=== PATIENT | male | born 1955 | race Caucasian/White ===

== ENCOUNTER 2016-08-14 18:54 | Observation (INO) ==
[2016-08-14] MEDS ORDERED: *HR* Adenosine 6 MG/2 ML SYRINGE IVP ONE ×2 (19:13→19:23)
[2016-08-14] MEDS ORDERED: 0.9 % Sodium Chloride 1,000 ML ONE ×2 (19:14→23:00)
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
[2016-08-14 19:58] LABS: Basophils % 0.3 %; Eosinophils % 0.1 %; Hematocrit 40.1 % (37.5-50.1); Hemoglobin 12.2 g/dL (12.9-16.9); Immature Granulocytes % 0.4 % (0-4); Lymphocytes # 2.9 K/mcL (0.6-4.6); Lymphocytes % 20.1 %; Mean Corpuscular HGB Conc 30.4 g/dL (31.6-35.5); Mean Corpuscular Hemoglobin 25.5 pg (28.0-33.3); Mean Corpuscular Volume 83.9 fL (83.0-100.0); Monocytes # 1.1 K/mcL (0.0-1.3); Monocytes % 7.6 %; Neutrophils # 10.2 K/mcL (1.6-8.9); Platelet Count 284 K/mcL (140-400); Red Blood Count 4.78 M/mcL (4.19-5.50); Red Cell Distribution Width 14.2 % (11.5-14.5); Segmented Neutrophils % 71.5 %
[2016-08-14 20:03] LABS: INR 1.1
[2016-08-14 20:05] LABS: Activated Partial Thrombo Time 26.7 Seconds (26.0-36.0)
[2016-08-14 20:07] LABS: BUN/Creatinine Ratio 14 (6-26); Blood Urea Nitrogen 11 mg/dL (8-26); Calcium 10.2 mg/dL (8.6-10.8); Carbon Dioxide 26 mEq/L (19-29); Chloride 99 mEq/L (98-109); Glucose 149 mg/dL (70-99); Osmolality,Calculated 286 (280-300); Potassium 4.2 mEq/L (3.5-4.5); Sodium 137 mEq/L (136-145); eGFR For African Americans > 60 (> 60); eGFR For Non-African Americans > 60 (> 60)
[2016-08-14] MEDS ORDERED: *HR* OxyCODONE Immed Rel 5 MG TABLET PO PRN (22:41)
[2016-08-14] MEDS ORDERED: diazePAM 5 MG TABLET PO PRN (22:41)
[2016-08-14] MEDS ORDERED: Naloxone 0.4 MG/ML INJ IVP PRN (22:52)
[2016-08-14] MEDS ORDERED: *HR* Morphine 2 MG/ML SYRINGE IVP PRN (22:52)
[2016-08-14] MEDS ORDERED: Ondansetron 4 MG/2 ML VIAL IVP PRN (22:52)
[2016-08-14] MEDS ORDERED: Acetaminophen 325 MG TABLET PO PRN (22:52)
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
[2016-08-14 23:09] LABS: Magnesium 1.9 mg/dL (1.6-2.6)
[2016-08-14] MEDS ORDERED: D5% in Water 1,000 ML IV PRN (23:38)
[2016-08-14] MEDS ORDERED: *HR* Dextrose 50 % in Water (Syg) 50 ML SYRINGE IVP PRN (23:38)
[2016-08-14] MEDS ORDERED: Dextrose Gel 15 GM PO PRN ×2 (23:38)
[2016-08-15] MEDS: Insulin LISPRO 300 UNITS/3 ML VIAL SQ SCH ×4 (01:31→18:01)
[2016-08-15] MEDS ORDERED: *HR* Morphine Sulfate SR (12 HR) 100 MG TABLET.ER PO SCH ×2 (06:00)
[2016-08-15] MEDS ORDERED: Regadenoson 0.4 MG/5 ML SYRINGE IVP ONE (06:50)
[2016-08-15] MEDS ORDERED: *HR* OxyCODONE Immed Rel 5 MG TABLET PO PRN (10:51)
[2016-08-15 11:23] LABS: BUN/Creatinine Ratio 16 (6-26); Blood Urea Nitrogen 10 mg/dL (8-26); Calcium 9.3 mg/dL (8.6-10.8); Carbon Dioxide 29 mEq/L (19-29); Chloride 103 mEq/L (98-109); Glucose 104 mg/dL (70-99); Osmolality,Calculated 289 (280-300); Potassium 4.3 mEq/L (3.5-4.5); Sodium 140 mEq/L (136-145); eGFR For African Americans > 60 (> 60); eGFR For Non-African Americans > 60 (> 60)
[2016-08-15] MEDS: Baclofen 10 MG TABLET PO SCH ×3 (11:32→18:05)
[2016-08-15] MEDS: Lisinopril 20 MG TABLET PO SCH (11:32)
--- NOTE | 2016-08-15 11:57 | Nuclear Medicine Stress Report ---
Regadenoson Nuclear Stress Name: Clint Castillo Date of Study: 08/15/2016 Date: 1955 Ht: 69.0 in Medical Record#: [id number] Age: 61 Wt: 200.0 lb Gender: Male Order #: [id number] Location: [facility] Room: [facility] [place] Supervising Provider: Joon Tierney CNP Reading Physician: Jessie Castro DO Ordering Physician: Betito Stephens DO Stress Technologist: Kiley Gonzalez, ALUMINUM POURER, CCT, CPFT Former Hand: Shannon Olson Impression: There is a small to medium sized, moderate-severe intensity stress perfusion defect involving the basal and mid inferior wall consistent with reversible ischemia. No appreciable change in pharmacologic ECG. No arrhythmias noted with stress. No complaints of chest pain. Gated EF = 65%. Findings communicated to ordering provider. History: Hypertension Diabetes Hypercholesteremia Stress Test Summary: Stress Test Type: Pharmacologic Regadenoson 0.4mg/5ml given IV Baseline Information: Initial Heart Rate: 61 Blood Pressure: 122/62 Stress Information: Test Terminated Due to (primary): Completed Protocol Maximum Blood Pressure: 130/62 Maximum Heart Rate: 79 Percent Maximum Heart Rate Achieved: 49 Double Product: 77377 METS Reached: 1 Symptoms: No chest symptoms Nuclear Summary: SPECT myocardial perfusion imaging using [id number] Sestamibi given intravenously was performed at rest and following cardiac stress testing. The resting images were obtained following initial dose of 10.6 mCi. Following stress an additional dose of 31.9 mCi was given at peak exercise or 30 seconds post regadenoson infusion. Medication Given: Time Medication Dose Units Route Findings: Stress Note * Resting ECG demonstrated normal sinus rhythm with nonspecific ST abnormalities. * Pharmacologic stress ECG is negative for ischemia at level of heart rate achieved. No appreciable change in resting ECG. * No arrhythmias were noted during stress. * Patient had no chest pain during stress. Hemodynamic responses * Normal hemodynamic responses to pharmacologic stress. Study Quality * Study quality is good. Gated EF % * Gated EF = 65%. Left Ventricle * The left ventricle is not dilated. TID * No evidence of transient ischemic dilatation. Lung Uptake * There is no evidence of increase lung uptake. NORMALS * Normal wall motion. PERFUSION * There is a small to medium sized, moderate-severe intensity stress perfusion defect involving the basal and mid inferior wall. * Other segments demonstrate normal rest and stress perfusion. Updated by Jessie Castro on 08/15/2016 11:49:27 AM electronically signed on 08/15/2016 11:53:16 AM with status of Final
[2016-08-15 12:07] LABS: Basophils % 0.3 %; Eosinophils # 0.1 K/mcL (0.0-0.6); Eosinophils % 0.6 %; Hematocrit 34.1 % (37.5-50.1); Hemoglobin 10.5 g/dL (12.9-16.9); Immature Granulocytes % 0.4 % (0-4); Immature Platelets 3.4 % (1.1-6.1); Lymphocytes # 1.7 K/mcL (0.6-4.6); Lymphocytes % 18.2 %; Mean Corpuscular HGB Conc 30.8 g/dL (31.6-35.5); Mean Corpuscular Hemoglobin 25.8 pg (28.0-33.3); Mean Corpuscular Volume 83.8 fL (83.0-100.0); Mean Platelet Volume 9.6 fL (9.4-12.4); Monocytes # 0.8 K/mcL (0.0-1.3); Monocytes % 8.3 %; Neutrophils # 6.9 K/mcL (1.6-8.9); Platelet Count 210 K/mcL (140-400); Red Blood Count 4.07 M/mcL (4.19-5.50); Red Cell Distribution Width 14.1 % (11.5-14.5); Segmented Neutrophils % 72.2 %
--- NOTE | 2016-08-15 12:07 | ECHO - Doppler Report ---
Echocardiogram Name: Clint Castillo Date of Study: 08/15/2016 Date: 1955 Ht: 69.0 in Medical Record#: [id number] Age: 61 Wt: 200.0 lb Gender: Male BSA: 2.07 Order #: [id number] Location: [facility] Room #: [id number] Reading Physician: Jessie Castro DO Punch Press Operator: Elliot Santos RN Ordering Physician: Phillip Borja MD Primary Physician: Aurelia Sanchez MD Indications: Arrhythmia Impressions: LVEF 65%. Normal left ventricular size and systolic function. Normal diastolic function of the left ventricle. Normal right ventricular size and function. No significant valvular dysfunction. No pulmonary hypertension. Left Ventricular Wall Motion: Rest Echo Findings All wall segments showed normal motion. Findings: Study Quality * Technically adequate exam. ECG Findings * Normal sinus rhythm. Left Ventricle * LVEF 65%. * Normal LV chamber size, wall thickness and function. * Normal left ventricular diastolic function. Left Atrium * Normal left atrial size. Aortic Valve * No aortic regurgitation. * Trileaflet aortic valve. * Normal aortic valve structure. * No aortic stenosis. Mitral Valve * No mitral regurgitation. * Normal mitral valve structure. * No mitral stenosis. Tricuspid Valve * Normal tricuspid valve structure. * Trace tricuspid regurgitation. * Estimated RA pressure is 3 mmHg. * Estimated RVSP is 32 mmHg. * No pulmonary hypertension. Pulmonic Valve * Pulmonic valve is not well visualized. * No pulmonic stenosis. * No pulmonic regurgitation. Pulmonary Artery * Pulmonary artery not well visualized. Right Ventricle * Normal right ventricular structure and function. Right Atrium * Normal right atrial size. Interatrial Septum * No evidence of PFO by color Doppler. IVC * The IVC is not dilated. Pericardium * There is no pericardial effusion present. Aorta * Normally sized aortic root. History Hypertension Diabetes Hypercholesteremia 10/27/2014 a Previous Echo was performed. Measurements: BP: 120/ 68 2D Normal Values IVSd: 1.30 cm 0.6 - 1.0 cm LVIDd: 5.30 cm 3.7 - 5.6 cm LVPWd: 1.10 cm 0.6 - 1.1 cm LVIDs: 3.50 cm 1.5 - 3.6 cm %FS: 34.00 cm >25 % LVOT Diam: 2.00 cm LA volume: Mitral Valve Peak E:1.03 m/sec Peak A:.85 m/sec E/A Ratio:1.2 Peak E' Lat Chris:12.6 cm/s Peak E' Med Chris:12.5 cm/s E/E' Lat Ratio:8.2 E/E' Med Ratio:8.2 Tricuspid Valve TV Regurg Peak Grad: 29.00mmHg TV Regurg Peak Chris: 2.67m/sec Updated by Jessie Castro on 08/15/2016 12:03:24 PM electronically signed on 08/15/2016 12:03:48 PM with status of Final [employer] [place]: 1=Normal, 2=Hypokinesis, 3=Akinesis, 4=Dyskinesis, 5=Aneurysmal, 6=Hyperkinetic, X=Not Visualized (Blank)=Missing
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
[2016-08-15] MEDS ORDERED: *HR* Heparin 10,000 UNIT/10 ML VIAL ONE (15:17)
[2016-08-15] MEDS ORDERED: Nitroglycerin 1,000 MCG/10 ML VIAL IV ONE (15:17)
[2016-08-15] MEDS ORDERED: 0.9 % Sodium Chloride 1,000 ML ONE (15:17)
[2016-08-15] MEDS ORDERED: Heparin 1,000 UNITS/500 mL NS 500 ML ONE (15:17)
[2016-08-15] MEDS: Metoprolol XL (24 HR) Succ 25 MG TAB.ER.24H PO SCH (15:39)
[2016-08-15] MEDS: Aspirin 81 MG TAB.CHEW PO SCH (15:39)
--- NOTE | 2016-08-15 15:41 | Pre-Sedation Evaluation ---
Pre-sedation evaluation - Pre-sedation checklist Date of procedure: 08/15/16 Procedure: 1530 Recent Vitals: Last Vital Signs Temp 97.6 F 08/15/16 07:20 Pulse 61 08/15/16 11:00 Resp 17 08/15/16 11:00 BP 120/88 08/15/16 11:00 Pulse Ox 95 08/15/16 13:15 H&P (including ROS) documented in medical record: Yes Previous reaction to sedatives/anesthetics: No Dietary Status: NPO after Midnight Airway Assessment: Patient can open mouth completely, TMJ function normal Dentition: No loose teeth or bridges Possible difficult airway: No ASA Classification *see protocol: CLASS II-Mild systemic disease Plan of Care: Pt appropriate candidate for procedure/moderate/conscious sedation , Risks/benefits of procedure/sedation discussed w/ patient/family, If not NPO; Risk of intake outweiged by necessity to perform procedure
[2016-08-15] MEDS ORDERED: *HR* FentaNYL (PF) 100 MCG/2 ML VIAL ONE (15:54)
[2016-08-15] MEDS ORDERED: *HR* Midazolam HCl 2 MG/2 ML VIAL ONE (15:54)
--- NOTE | 2016-08-15 16:26 | Event Note ---
Date of Encounter: 08/15/16 Time of Encounter: 16:20 - Cardiology Event Note LHC: non-obstructive CAD. No further inpatient Cardiology recommendations, continue medical management. Concern for atypical atrial flutter on ECG, CHA2Ds Vasc=1. Continue asa for now and betablocker for rate control. Follow-up with Dr. Roge Baker in the outpatient setting in 3-4 weeks. Cardiology will sign-off, please call with questions.
--- NOTE | 2016-08-15 16:39 | Invasive Diagnostic Lab Proc ---
Name: Clint Castillo Date of Study: 08/15/2016 Date: 1955 Ht: 68.9in Medical Record#: [id number] Age: 61 Wt: 202.83lb Gender: Male BSA: 2.08 Order #: [id number] BMI: 30.04 Physicians Procedure Physician: Juanito Colindres MD Referring MD: Referring MD: Staff Name Position Time In Mallika Burrows RN Monitor 03:56 PM Gisela Blood RN Industrial Tech Instructor 03:56 PM [facility], Bev RT (R) 03:56 PM Kaylee Bradley RT (R) Scrub 03:56 PM Indications Indication Abnormal Test - Stress Procedures Performed Procedure L HRT ARTERY/VENTRICLE ANGIO Pre-Procedure Checklist Informed consent is complete signed and on chart. H\\T\\P is on chart. ID band is on and ID verified with patient. Patient NPO for procedure The procedure was described for the patient and questions were answered. Blood Pressure: 165/87 ECG is on chart. Rhythm: Sinus Bradycardia Plan of Care Patient will tolerate the procedure without complications. Adequate level of comfort will be maintained. Hemodynamics will remain stable Patient will recover from procedure without complications. Respiratory function will be maintained. Cardiac rhythm will remain stable. Patient temperature will be maintained. Patient and/or family have verbalized understanding of the procedure. Patient Education Chief Complaint/Reason for Test: Cardiac Cath Developmental Category: Adult (18-64 years) Developmentally Appropriate for Age: Yes Learning Barriers: None Education Needs: Procedure Education Method: Verbal Information Taught: Cardiac Cath Educational Evaluation: Able to repeat information Intravenous Access Time IV Size Location DC'd Fluid/Drip Rate Units RN 04:02 PM Started with 22g 1 " Rt Arm 0.9NaCl 25 ml/hr Gisela Blood RN Allergies No Known Allergies Vital Signs Time BP (mmHg) HR (bpm) O2 Sat. RR (bpm) LOC 03:58 PM 165 / 87 51 98 % 24 5 = Fully awake and oriented or at pre-proc level 03:58 PM / % 5 = Fully awake and oriented or at pre-proc level 03:57 PM 165 / 87 51 98 % 24 04:02 PM 160 / 80 54 96 % 13 04:07 PM 157 / 89 62 97 % 19 04:12 PM 148 / 83 53 97 % 14 04:17 PM 163 / 82 49 97 % 18 04:21 PM 153 / 92 48 95 % 18 04:26 PM 158 / 90 48 95 % 13 04:13 PM / % 5 = Fully awake and oriented or at pre-proc level Procedural Medications Time Medication Dose Units Method Given By 03:57 PM Oxygen 2 L/min nasal cannula Gisela Blood RN 03:57 PM Versed 1 mg Intravenous Gisela Blood RN 03:58 PM Fentanyl 50 mcg Intravenous Gisela Blood RN 04:00 PM Lidocaine 2% 17 ml Subcutaneous Juanito Colindres MD ASA Classification: CLASS II- Mild systemic disease (i.e. well-controlled diabetes, hypertension, asthma, cigarette smoking) Suzan Score Preprocedure Postprocedure Activity 1- Moves 2 extremities sustained head lift Activity 2- Moves 4 extremities sustained head lift Circulation 2- SBP +/= 20 points of pre-anesthetic level Circulation 2- SBP +/= 20 points of pre-anesthetic level Consciousness 2- Awake and alert oriented x 3 Consciousness 2- Awake and alert oriented x 3 O2 Saturation 2- Able to maintain O2 satruation of 92% on room air O2 Saturation 2- Able to maintain O2 satruation of 92% on room air Respiratory 2- Able to deep breathe and cough well Respiratory 2- Able to deep breathe and cough well Total Score 9 Total Score 10 Contrast Agent: Isovue Diagnostic Contrast: 72 ml Total Contrast: 72 ml Fluoro Dose: 346 mGy Procedure Log Time Note Enter By 03:22 PM CathStat 03:55 PM Pt arrived to medical lab specialist 2 at 15:55 tsites 03:55 PM Physician arrived 15:55 tsites 03:55 PM Meet and greet completed tsites 03:55 PM Sign in performed according to hospital policy. tsites 03:55 PM Procedure start 15:55 tsites 03:55 PM Recorded ECG: HR=52 Condition=Condition 1 03:55 PM Vitals capture started with the following parameters, Patient=Adult, Interval=5 min, Initial Qaflfefe=495 mmHg, Deflation Rate=5 mmHg, Cuff placed on Right Arm 03:56 PM Mallika Burrows RN Position: Monitor Time in: 15:56 tsites 03:56 PM Gisela Blood RN Position: Industrial Tech Instructor Time in: 15:56 tsites 03:56 PM Bev Willett RT (R) Position: Time in: 15:56 tsites 03:57 PM HR=51 bpm, QNZV=389/87 mmhg, SpO2=98.0 %, Resp=24 B/min, Comment=Sinus Suman 03:57 PM Kaylee Bradley RT (R) Position: Scrub Time in: 15:56 tsites 03:57 PM Patient charges- Angio tray pack, Navilyst 3mm J, Pulse Oximetry and ACIST tubing and transducer tsites 03:57 PM Case Delayed No tsites 03:57 PM Hair removed from procedure site in procedure lab using clippers. Bilateral groin prepped with Chloraprep by Bev Willett RT (R) then patient draped. Skin intact. tsites 03:57 PM Time: 15:57 Oxygen on at 2 L/min per nasal cannula by Gisela Blood RN tsites 03:58 PM Time: 15:57 Versed 1 mg Intravenous Given by Gisela Blood RN tsites 03:58 PM Time: 15:58 Fentanyl 50 mcg Intravenous Given by Gisela Blood RN tsites 03:58 PM Time: 15:58 Patient comfortable and pain free: Yes tsites 03:58 PM Time: 15:58LOC: 5 = Fully awake and oriented or at pre-proc level tsites 03:58 PM Clinical Presentation: Stable angina tsites 03:58 PM Pressure channel 1 zero failed. 03:59 PM ASA Class CLASS II- Mild systemic disease (i.e. well-controlled diabetes, hypertension, asthma, cigarette smoking) tsites 03:59 PM Pressure channel 1 zeroed. 03:59 PM Time out performed according to hospital policy tsites 04:00 PM Time: 16:00 17 ml Lidocaine 2% to right groin Subcutaneous Given by Juanito Colindres MD tsites 04:01 PM Access obtained by percutaneous puncture. 5Fr 10cm Terumo [place] sheath placed in right Femoral artery. [id number] tsites 04:01 PM 5Fr FL 4 catheter inserted over the wire [facility] tsites 04:01 PM LCA angiography performed in multiple views. tsites 04:02 PM HR=54 bpm, PDMH=756/80 mmhg, SpO2=96.0 %, Resp=13 B/min, Comment=Sinus Suman 04:02 PM Recorded Pressure: Ao, HR=50, Condition=Condition 1 (Aorta) Ao 139/82/105 04:03 PM Catheter removed tsites 04:03 PM 5Fr FR 4 catheter inserted over the wire [facility] tsites 04:04 PM RCA angiography performed in multiple views. tsites 04:04 PM Recorded Pressure: Ao, HR=58, Condition=Condition 1 (Aorta) Ao 141/90/113 04:05 PM Catheter removed tsites 04:05 PM Coronary Dominance: right tsites 04:05 PM 5Fr Pigtail catheter inserted over the wire [facility] tsites 04:05 PM Catheter selectively placed in left ventricle tsites 04:06 PM Pressure channel 1 zero failed. 04:06 PM Pressure channel 1 zeroed. 04:06 PM Recorded Pressure: LV, HR=58, Condition=Condition 1 (Left Ventricle) LV 144/6/22 04:06 PM Bolus angiogram of left Ventricle complete: 12 ml/sec for a total of 36 mls tsites 04:07 PM Recorded Pressure: LV, Ao, HR=63, Condition=Condition 1 (Left Ventricle) LV 122/30/30, (Aorta) Ao 125/76/97 04:07 PM HR=62 bpm, EELD=161/89 mmhg, SpO2=97.0 %, Resp=19 B/min, Comment=Sinus Suman 04:07 PM Bolus angiogram of right Femoral complete: 2 ml/sec for a total of 4 mls tsites 04:07 PM Catheter removed tsites 04:07 PM Coronary Dominance: right tsites 04:07 PM Procedure completed at 16:07 tsites 04:08 PM Sign out completed: Radiation Dose 346.26 mGy Fluoro Time: 1.0 Isovue 370 - 200ml contrast 71.5 ml given by Juanito Colindres MD. Complications: NoneCardiac Rehab Consult needed: NoConfirmed administered medications: Yes tsites 04:08 PM Isovue 370 - 200ml,1 Bottle(s) used. tsites 04:12 PM HR=53 bpm, SPAZ=444/83 mmhg, SpO2=97.0 %, Resp=14 B/min, Comment=Sinus Suman 04:13 PM Arterial sheath pulled using manual compression and V+ Pad for 15 minutes by Gisela Blood RN tsites 04:13 PM Time: 15:58LOC: 5 = Fully awake and oriented or at pre-proc level tsites 04:13 PM Time: 15:58 Patient comfortable and pain free: tsites 04:13 PM Post ECG Sinus Bradycardia tsites 04:13 PM Post Blood Pressure 148/83 tsites 04:14 PM 16:14 Post Pulses Bilateral DP \\T\\ PT 1+ tsites 04:14 PM Information taught Cardiac Cath tsites 04:14 PM Education needs Procedure, Plan of Care, and Safe \\T\\ Effective Use of Medications tsites 04:14 PM Learning barriers :None tsites 04:14 PM Education Methods Verbal tsites 04:14 PM Education evaluation Able to repeat information tsites 04:17 PM HR=49 bpm, JRFM=459/82 mmhg, SpO2=97.0 %, Resp=18 B/min, Comment=Sinus Suman 04:18 PM Report given to Nithya GARCIA Pt taken to E Room #25. 16:18 tsites 04:21 PM HR=48 bpm, PRWI=757/92 mmhg, SpO2=95.0 %, Resp=18 B/min, Comment=Sinus Suman 04:26 PM HR=48 bpm, SUMR=673/90 mmhg, SpO2=95.0 %, Resp=13 B/min, Comment=Sinus Suman 04:27 PM Site status No bleeding/hematoma - Rt Groin as reported by Gisela Blood RN at 16:27 tsites 04:27 PM Opsite applied tsites 04:28 PM Plavix, Effient or Brilinta given No tsites 04:28 PM Delay to floor No tsites 04:28 PM Patient out of room: 16:28 tsites 04:28 PM Family placed in consult room. tsites 04:28 PM Complications: None tsites 04:28 PM Fluoro Time: 1 tsites 04:28 PM Isovue 370 - 200ml contrast 71.5 ml given by Juanito Colindres MD. tsites 04:28 PM Radiation Dose 346.26 mGy tsites 04:28 PM Time: 16:13LOC: 5 = Fully awake and oriented or at pre-proc level tsites 04:28 PM Time: 16:13 Patient comfortable and pain free: Yes tsites Complications Complication None None Hemodynamics Pressures Site Systolic/A Wave Diastolic/V Wave Mean AO 139 82 105 AO 141 90 113 LV 144 6 22 LV 122 30 30 AO 125 76 97 Post Procedure Information Blood Pressure: 148/83 mmHg Rhythm: Sinus Bradycardia Post procedural instructions were given Closure Device Time Device Success/Fail 08/15/2016 4:08:00 PM Manual Compression Successful Site Checks Time Location Status Staff Sheath In? Note 04:27 PM Rt Groin No bleeding/hematoma Gisela Blood RN Pulses Time Site Pre-Procedure Post-Procedure Note 4:14:00 PM Bilateral DP \\T\\ PT 1+ 08/15/2016 3:55:00 PM Bilateral DP \\T\\ PT 1+ Updated by Bev Tamie, RT (R) on 08/15/2016 4:31:49 PM [facility], RT electronically signed on 08/15/2016 4:32:25 PM with status of Final
--- NOTE | 2016-08-15 17:27 | Electrocardiograph Report ---
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
[2016-08-15] MEDS: 0.9 % Sodium Chloride 1,000 ML IVC SCH (18:00)
[2016-08-15] MEDS: *HR* Heparin 5,000 UNIT/ML VIAL SQ SCH (18:00)
[2016-08-15] MEDS: *HR* Morphine Sulfate SR (12 HR) 100 MG TABLET.ER PO SCH (18:05)
--- NOTE | 2016-08-15 18:53 | Internal Med Progress Note ---
Date of Encounter: 08/15/16 Time of Encounter: 12:30 - Assessment and plan (1) Atrial flutter Current Visit: Yes Status: Acute Assessment and plan: ASA and rate control per cardiology. Qualifiers: Atrial flutter type: atypical Qualified Code(s): I48.4 - Atypical atrial flutter (2) Abnormal stress test Current Visit: Yes Status: Acute Assessment and plan: Cath negative today. (3) Abdominal pain Current Visit: Yes Status: Acute Assessment and plan: Check CT Qualifiers: Abdominal location: right lower quadrant Qualified Code(s): R10.31 - Right lower quadrant pain (4) Paraplegia Current Visit: Yes Status: Acute - Subjective Interval history: Mr. Castillo is currently in observation for chest pain. He is high risk due to potential for further cardiac compromise. Mr. Castillo returned from stress. Stress test is positive. No CP or SOB now. Has issues with lower abd pain on the R - no CT done in past. No fever or chills. Had cardiac cath which was negative. - Constitutional Vitals: Temp Pulse Resp BP Pulse Ox 97.6 F 57 17 124/64 95 08/15/16 07:20 08/15/16 18:33 08/15/16 11:00 08/15/16 18:33 08/15/16 13:15 General appearance: Present: A&O X 3, pleasant, answers questions appropriately - Head Head exam: Present: normocephalic - Eye Eye exam: Present: conjuntiva pink - ENT ENT exam: Present: mucous membranes moist - Respiratory Respiratory exam: Present: decreased breath sounds, CTAB - Cardiovascular Cardiovascular exam: Present: RRR. Absent: tachycardia - GI/Abdominal GI/Abdominal exam: Present: rigid, tenderness (Tender r lower abdomen laterally) - Extremities Exam Extremities exam: Present: warm. Absent: tenderness - Neurological Exam Neurological exam: Present: alert, oriented X3 (paraplegic) - Skin Skin exam: Present: dry, warm. Absent: rash Internal Medicine: Result - Labs CBC & Chem 7: 08/15/16 12:00 08/15/16 10:52 Labs: Short CBC 08/15/16 Range/Units 12:00 WBC 9.6 (4.3-11.1) K/mcL Hgb 10.5 L D (12.9-16.9) g/dL Hct 34.1 L (37.5-50.1) % Plt Count 210 (140-400) K/mcL Neutrophils # 6.9 (1.6-8.9) K/mcL BMP 08/15/16 10:52 Sodium 140 Potassium 4.3 Chloride 103 Carbon Dioxide 29 BUN 10 Creatinine 0.62 L Glucose 104 H Calcium 9.3 Cardiac Enzymes 08/15/16 Range/Units 04:38 Troponin I 0.02 (0-0.03) ng/mL - ABG Interpretation ABG results: PT/INR, D-dimer PT 12.0 Seconds (9.4-12.1) 08/14/16 19:10 - VTE Reasons for not Prescribing Prophylaxis: Treatment not Indicated - Low risk for VTE Consult Discharge Plan - Plan Referrals: Aurelia Sanchez MD [Primary Care Provider] -
[2016-08-15] MEDS ORDERED: Insulin LISPRO 300 UNITS/3 ML VIAL SQ SCH (21:00)
[2016-08-16] MEDS: Baclofen 10 MG TABLET PO SCH ×2 (00:57→09:17)
[2016-08-16] MEDS: Lisinopril 20 MG TABLET PO SCH ×2 (00:57→09:17)
[2016-08-16] MEDS: *HR* Morphine Sulfate SR (12 HR) 100 MG TABLET.ER PO SCH ×2 (00:57→09:17)
[2016-08-16] MEDS: *HR* Heparin 5,000 UNIT/ML VIAL SQ SCH ×2 (00:59→06:32)
[2016-08-16] MEDS: 0.9 % Sodium Chloride 1,000 ML IVC SCH (01:03)
[2016-08-16 05:57] LABS: Hematocrit 33.8 % (37.5-50.1); Hemoglobin 10.3 g/dL (12.9-16.9); Mean Corpuscular HGB Conc 30.5 g/dL (31.6-35.5); Mean Corpuscular Hemoglobin 26.3 pg (28.0-33.3); Mean Corpuscular Volume 86.2 fL (83.0-100.0); Mean Platelet Volume 10.1 fL (9.4-12.4); Platelet Count 191 K/mcL (140-400); Red Blood Count 3.92 M/mcL (4.19-5.50); Red Cell Distribution Width 13.9 % (11.5-14.5)
[2016-08-16 06:15] LABS: BUN/Creatinine Ratio 21 (6-26); Blood Urea Nitrogen 14 mg/dL (8-26); Calcium 8.6 mg/dL (8.6-10.8); Carbon Dioxide 30 mEq/L (19-29); Chloride 103 mEq/L (98-109); Glucose 91 mg/dL (70-99); Magnesium 1.9 mg/dL (1.6-2.6); Osmolality,Calculated 292 (280-300); Sodium 141 mEq/L (136-145); eGFR For African Americans > 60 (> 60); eGFR For Non-African Americans > 60 (> 60)
[2016-08-16 09:13] VITALS: BP 122/67
[2016-08-16] MEDS: Insulin LISPRO 300 UNITS/3 ML VIAL SQ SCH ×2 (09:13→12:06)
[2016-08-16] MEDS: Aspirin 81 MG TAB.CHEW PO SCH (09:18)
[2016-08-16] MEDS: Metoprolol XL (24 HR) Succ 25 MG TAB.ER.24H PO SCH (09:18)
--- NOTE | 2016-08-16 11:13 | Electrocardiograph Report ---
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
--- NOTE | 2016-08-16 11:15 | Electrocardiograph Report ---
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
--- NOTE | 2016-08-16 11:16 | Electrocardiograph Report ---
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
--- NOTE | 2016-08-16 11:16 | Electrocardiograph Report ---
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
--- NOTE | 2016-08-16 11:48 | Discharge Summary ---
Date of Encounter: 08/16/16 Time of Encounter: 11:30 - Discharge Diagnosis (1) Atrial flutter Priority: Primary Status: Acute Qualifiers: Atrial flutter type: atypical Qualified Code(s): I48.4 - Atypical atrial flutter (2) Abnormal stress test Priority: Secondary Status: Resolved (3) Abdominal pain Priority: Secondary Status: Chronic Qualifiers: Abdominal location: right lower quadrant Qualified Code(s): R10.31 - Right lower quadrant pain (4) Paraplegia Priority: Secondary Status: Acute (5) Diverticulosis Priority: Secondary Status: Acute Qualifiers: Diverticulosis site: diverticulosis of large intestine Diverticulosis bleeding: diverticulosis without bleeding Qualified Code(s): K57.30 - Diverticulosis of large intestine without perforation or abscess without bleeding (6) Pulmonary nodules Priority: Secondary Status: Acute Comments: Per [facility] - Discharge Medications Prescriptions: Lidocaine Patch [Lidoderm 5% patch] 1 each TP DAILY #30 adh..patch Metoprolol XL (24 HR) Succ [Toprol Xl] 12.5 mg PO DAILY #30 tab.er.24h Home Medications: Baclofen 20 mg PO QID 08/14/16 [History] Citalopram Hydrobromide [Citalopram HBr] 40 mg PO DAILY 08/14/16 [History] Diazepam [Valium] 5 mg PO TID PRN 08/14/16 [History] Ergocalciferol (VITAMIN D2) [Vitamin D2] 50,000 unit PO QWEEK 08/14/16 [History] Lisinopril [Zestril] 20 mg PO BID 08/14/16 [History] Meloxicam [Mobic] 15 mg PO DAILY 08/14/16 [History] Morphine Sulfate [Morphine Sulfate ER] 300 mg PO Q8HR 08/14/16 [History] Oxycodone HCl 20 mg PO QID PRN 08/14/16 [History] Pioglitazone [Actos] 15 mg PO DAILY 08/14/16 [History] Pravastatin Sodium [Pravachol] 20 mg PO DAILY 08/14/16 [History] Aspirin 81 mg PO DAILY tab.chew 08/16/16 [Rx] Lidocaine Patch [Lidoderm 5% patch] 1 each TP DAILY #30 adh..patch 08/16/16 [Rx] Metoprolol XL (24 HR) Succ [Toprol Xl] 12.5 mg PO DAILY #30 tab.er.24h 08/16/16 [Rx] Allergies/Adverse Reactions: Allergies No Known Allergies Allergy (Verified 08/14/16 18:56) Procedures/tests Complete & Pending: Procedures Performed prior 72 hours Category Date Time Status CT abd pelvis w iv and oral [CT] Routine Cat Scan 08/16/16 18:57 Completed CL Cardiac Catheterization [CL] Routine Contact Lens Blocker 08/15/16 15:19 Ordered NM nafisa perf SPECT multi [NM] Routine Exams 08/14/16 22:52 Taken ECG 12 lead ECG [ECG] Routine Y 08/14/16 19:04 Completed ECG 12 lead ECG [ECG] Routine Y 08/14/16 20:04 Completed ECG 12 lead ECG [ECG] Routine Y 08/14/16 20:09 Completed ECG 12 lead ECG [ECG] Routine Y 08/14/16 22:08 Completed EV echocardiogram Routine Y 08/15/16 22:43 Completed SP pharm nuclear stress Routine Y 08/15/16 07:35 Completed - Notes to Outpatient Provider Has small adrenal nodules on R on abd/pelvis CT. Needs dedicated CT of adrenals. Date of admission: 08/14/16 21:47 Primary care physician: Aurelia Sanchez MD Consults: 08/15/16 11:55 Consult to Cardiology [CONS] Routine Comment: Consulting Provider: Elaine Mares Reason for Consult: Abnormal stress Call Completed: Yes 08/15/16 16:09 Consult to Cardiac Rehabilitation-Phase1 [CONS] Routine Comment: Reason for Consult: post op cath Call Completed: Yes Discharging clinician: Betito Stephens Anticipated date of discharge: 08/16/16 - Patient Status Disposition: Home, Self-Care Condition: Good Functional capacity at discharge: wheelchair bound Overall status at discharge: patient is progressing back to baseline - Discharge Instructions Instructions: Supraventricular Tachycardia (DC) Follow Up With: Aurelia Sanchez MD [Primary Care Provider] - - Diet and Activity Activity: resume usual activities as tolerated Diet: advance to your usual diet Hospital course: Mr. Castillo is a 61 year old male with history of paraplegia presented to ED with chest pain and palpitations. He was found to have atrial flutter and subsequently admitted. Mr. Castillo was admitted to med surg. He was placed on beta hellen and was evaluated by cardiology. He also had an echocardiogram which was normal. Mr. Castillo underwent cardiac stress test which was abnormal. He then went to cardiac cath which showed nonobstructive disease. In discussion he expressed concern about pain in his R lower abdomen. He recently had CT of chest and has pulmonary nodules. He underwent CT of abdomen here which showed diverticulosis and small R adrenal nodules. On the morning of 08/16 he was feeling well but was bradycardic. He was able to move around without difficulty. At that time he was felt stable for discharge home with outpatient follow up. He was afebrile at the time. - Time Spent with Patient Total time spent providing and/or coordinating discharge services: 42min - Constitutional Vitals: Temp Pulse Resp BP Pulse Ox 97.9 F 45 18 122/67 99 08/16/16 04:15 08/16/16 07:00 08/16/16 07:00 08/16/16 07:00 08/16/16 07:00 General appearance: Present: A&O X 3, pleasant, answers questions appropriately - Head Head exam: Present: normocephalic - Eye Eye exam: Present: conjuntiva pink - ENT ENT exam: Present: mucous membranes moist - Respiratory Respiratory exam: Present: CTAB. Absent: rhonchi, wheezes - Cardiovascular Cardiovascular exam: Present: bradycardia. Absent: systolic murmur - GI/Abdominal GI/Abdominal exam: Present: soft Additional comments: Minimal tenderness R lateral abdominal wall. - Extremities Exam Extremities exam: Present: warm - Neurological Exam Neurological exam: Present: alert, oriented X3 (Paraplegic) - Psychiatric Psychiatric exam: Present: normal affect, normal mood - Skin Skin exam: Present: dry, warm. Absent: rash - VTE Reasons for not Prescribing Prophylaxis: Treatment not Indicated - Low risk for VTE
--- NOTE | 2016-08-16 11:58 | Invasive Diagnostic Lab ---
Name: Clint Castillo Date of Study: 08/15/2016 Date: 1955 Ht: 175.0 cm /68.9 in Medical Record#: [id number] Age: 61 Wt: 92. kg / 202.83 lb Account/Order#: [id number] Gender: Male BSA: 2.08 Order #: [id number] Fluoro Dose: 346 mGy BMI: 30.04 Procedure Physician: Juanito Colindres MD Referring MD: Referring MD: Procedures Performed: LEFT HEART CATH Indications: Abnormal Test - Stress Impressions: Coronary arteries are angiographically normal. The left ventricle is normal and has normal contractility EF 60% Recommendations: Optimal medical therapy of patient's disease. Aggressive risk factor modification. Procedure Access obtained in the right Femoral artery by percutaneous puncture Complications: None, None Contrast: Isovue 72ml Closure Device: Manual Compression Hemodynamics: Pressures Site Systolic/ A Wave Diastolic/ V Wave End Diastolic/ Mean HR AO 139 82 105 50 AO 141 90 113 58 LV 144 6 22 58 LV 122 30 30 64 AO 125 76 97 63 LV Ventriculography Ejection Method: LV Gram Ejection Fraction: 60% Wall Motion: RAE Anterobasal Normal Anterolateral Normal Apical: Normal Inferoapical Normal Inferobasal Normal Coronary Dominance: right Lesion Findings/Interventions * Left Main Coronary Artery The LMCA is angiographically free of disease. * Left Anterior Descending The LAD is angiographically free of disease. The 1st Diagonal is angiographically free of disease. * Circumflex The Circumflex is angiographically free of disease. The 1st Marginal is angiographically free of disease. * Right Coronary Artery The RCA is angiographically free of disease. The Right PDA is angiographically free of disease. Updated by RT Mary Ann (R) on 08/15/2016 4:32:08 PM Juanito Colindres MD electronically signed on 08/16/2016 11:55:24 AM with status of Final
== END 2016-08-16 12:20 | disposition home or self-care (01) ==
LOC: EMEROO 18:54 → 2NENU 18:54
PROVIDERS: ADMIT Internal Medicine; ATTEND Internal Medicine

== ENCOUNTER 2018-05-08 04:53 | Inpatient (IN) ==
[2018-05-08] MEDS ORDERED: Ondansetron 4 MG/2 ML VIAL ONE (04:58)
[2018-05-08] MEDS ORDERED: *HR* LORazepam 2 MG/ML VIAL ONE (04:59)
[2018-05-08] MEDS ORDERED: KETAMINE HCL 50 MG/ML SYRINGE IV ONE ×2 (05:14→05:34)
[2018-05-08] MEDS ORDERED: Ondansetron 4 MG/2 ML VIAL IVP ONE (05:34)
[2018-05-08] MEDS ORDERED: *HR* LORazepam 2 MG/ML VIAL IVP ONE (05:34)
--- NOTE | 2018-05-08 05:40 | Emergency Department Note ---
Disposition Clinical Impression: Altered mental state Qualifiers: Altered mental status type: unspecified Qualified Code(s): R41.82 - Altered mental status, unspecified Disposition: Admitted As Inpatient Condition: Serious General Adult HPI - General Chief complaint: ED Altered Mental Status Stated complaint: Overdose Time Seen by Provider: 05/08/18 05:23 Source: family, EMS Mode of arrival: EMS Limitations: altered mental status Nursing Notes Reviewed: Yes Vital Signs Reviewed: Yes - History of Present Illness HPI Narrative: 63-year-old male presenting to the emergency department chief complaint of altered mental status. According to EMS called with concern for altered mental status as the patient was confused and stating he could not breathe. A ccording to EMS patient was very combative in the ride to the emergency department. They were unable to obtain any vital signs. According to patient is on high-dose morphine and oxycodone. For the past 2-3 days he has not been feeling well. Coughing and producing sputum. Last evening he had fever at home and has been having chills. Increasingly lethargic. This evening he was very confused. He woke his up and stated he was concerned he took too much morphine. He asked her to give him the Narcan they had at home. She stated it was inappropriate to give as he was awake but he insisted. Patient became more confused afterwards and was brought to the emergency department for further evaluation. Pain Scale: 0 - Related Data Home Medications Medication Instructions Recorded Confirmed Atorvastatin [Lipitor] 20 mg PO HS 10/23/17 10/23/17 Baclofen 20 mg PO TID 10/23/17 10/23/17 Citalopram Hydrobromide 40 mg PO DAILY 10/23/17 10/23/17 [Citalopram HBr] Lidocaine 1 patch TD Q12H 10/23/17 10/23/17 Lisinopril [Zestril] 40 mg PO DAILY 10/23/17 10/23/17 Memantine HCl 10 mg PO BID 10/23/17 10/23/17 Metoprolol XL (24 HR) Succ [Toprol 12.5 mg PO DAILY PRN 10/23/17 10/23/17 Xl] Morphine Sulfate SR (12 HR) [MS 100 mg PO 6XD 10/23/17 10/23/17 Contin] OxyCODONE Immed Rel [Roxicodone 30 30 mg PO Q6H 10/23/17 10/23/17 MG] Pioglitazone HCl [Actos] 15 mg PO DAILY 10/23/17 10/23/17 Propranolol HCl 40 mg PO TID 10/23/17 10/23/17 Sennosides [Senokot] 8.6 mg PO DAILY 10/23/17 10/23/17 hydrOXYzine HCl [Hydroxyzine HCl] 12.5 - 25 mg PO TID PRN 10/23/17 10/23/17 Allergies Allergy/AdvReac Type Severity Reaction Status Date / Time No Known Allergies Allergy Verified 10/23/17 07:20 All systems ED: reviewed and negative except as stated. Constitutional: Reports: fever, chills Eyes: Reports: as per HPI ENT ED: Reports: as per HPI Cardiovascular: Reports: as per HPI Respiratory: Reports: dyspnea, sputum production Gastrointestinal: Reports: as per HPI Genitourinary: Reports: as per HPI Musculoskeletal: Reports: as per HPI Integumentary: Reports: as per HPI Neurological: Reports: as per HPI Psychiatric: Reports: as per HPI Endocrine: Reports: as per HPI Hematological/Lymphatic: Reports: as per HPI Allergic/Immunologic: Reports: as per HPI Past Medical History - Past Medical History Attestation: Yes The following information was validated with the patient. Medical history: Reports: diabetes, hyperlipidemia, hypertension, SVT, other Psychiatric history: Reports: anxiety, depression - Social History Smoking Status: Unknown if ever smoked Smokeless Tobacco Status: No Alcohol use: Reports: none, unknown Drug use: Reports: none, unknown Physical Exam - General Limitations: no limitations General appearance: anxious, in distress - Head Head exam: atraumatic, normocephalic, normal inspection - Eye Eye exam: Absent: scleral icterus, conjunctival injection - Neck Neck exam: Present: normal inspection - Chest Chest inspection: Present: normal inspection - Respiratory Respiratory exam: Present: normal lung sounds bilaterally. Absent: respiratory distress, wheezes, stridor - Cardiovascular Cardiovascular exam: Present: normal rhythm, tachycardia - Abdominal Exam Abdominal exam: Present: soft. Absent: distention, guarding, rebound - Neurological Exam Neurological exam: Present: alert - Psychiatric Psychiatric exam: Present: anxious Course Course Narrative: 63-year-old male presenting for altered mental status. Patient very combative in the room. When patient first arrived he was aggressive violent with staff. 2 mg of Ativan was given without any resolution of his symptoms. Decision was made to provide him with 100 mg of caffeine. After that patient was resting comfortably. He is alert and hemodynamically stable. Concern for altered mental status with intracranial abnormality versus sepsis due to patient's recent fever. We will obtain broad labs including blood cultures, lactic and a CT of the head. Disposition most likely admission the pending results. at bedside. - Reevaluation(s) Reevaluation #1: Patient's laboratory analysis shows elevated lactic acid at 6.5. Most likely due to patient's thrashing. Otherwise urinalysis shows urinary tract infection. CT of the head very limited due to motion artifact but no acute intracranial abnormality detected. We will provide the patient with Rocephin for the urinary tract infection and oral morphine in hopes of calming the patient. At this time will plan to admit the patient for altered mental status and further evaluation. Patient remains hemodynamically stable. Repeat lactic acid will be ordered. The hospitalist, Dr. Fatima, was consulted and accepted admission of the patient. Vital Signs Temperature 98.2 F 05/08/18 04:55 Pulse Rate 102 05/08/18 04:55 Respiratory Rate 26 05/08/18 04:55 Blood Pressure 189/94 05/08/18 04:55 O2 Sat by Pulse Oximetry 100 05/08/18 04:55 Temperature 99.2 F 05/08/18 05:11 Pulse Rate 66 05/08/18 06:07 Respiratory Rate 24 05/08/18 06:07 Blood Pressure 176/105 05/08/18 06:07 O2 Sat by Pulse Oximetry 100 05/08/18 06:07 Oxygen Delivery Oxygen Delivery Non Rebreather Mask Medical Decision Making - Lab Data Result diagrams: 05/08/18 05:28 05/08/18 05:28 Lab Results 05/08/18 05/08/18 05/08/18 Range/Units 05:28 05:28 05:28 WBC 10.1 (4.3-11.1) K/mcL RBC 4.55 (4.19-5.50) M/mcL Hgb 12.4 L (12.9-16.9) g/dL Hct 39.5 (37.5-50.1) % MCV 86.8 (83.0-100.0) fL MCH 27.3 L (28.0-33.3) pg MCHC 31.4 L (31.6-35.5) g/dL RDW 13.6 (11.5-14.5) % Plt Count 315 (140-400) K/mcL MPV 8.9 L (9.4-12.4) fL Immature Gran % 0.5 (0-4) % Seg Neutrophils % 58.7 % Lymphocytes % 25.0 % Monocytes % 11.7 % Eosinophils % 3.3 % Basophils % 0.8 % Neutrophils # 6.0 (1.6-8.9) K/mcL Lymphocytes # 2.5 (0.6-4.6) K/mcL Monocytes # 1.2 (0.0-1.3) K/mcL Eosinophils # 0.3 (0.0-0.6) K/mcL Basophils # 0.1 (0.0-0.2) K/mcL PT 10.1 (9.4-12.1) Seconds INR 0.9 APTT 27.3 (26.0-36.0) Seconds Sodium 138 (136-145) mEq/L Potassium 3.8 (3.5-5.1) mEq/L Chloride 101 (98-107) mEq/L Carbon Dioxide 23 (23-29) mEq/L BUN 16 (8-23) mg/dL Creatinine 0.90 (0.70-1.30) mg/dL Est GFR ( Amer) > 60 (> 60) Est GFR (Non-Af Amer) > 60 (> 60) BUN/Creatinine Ratio 18 (6-26) Glucose 80 (70-105) mg/dL Calculated Osmolality 286 (280-300) Lactic Acid (0.5-2.2) mmol/L Calcium 9.4 (8.6-10.3) mg/dL Total Bilirubin 0.4 (0.3-1.0) mg/dL Direct Bilirubin 0.1 (0.0-0.2) mg/dL Indirect Bilirubin 0.3 (0.0-1.2) mg/dL AST 13 (13-39) Units/L ALT 17 (7-52) Units/L Alkaline Phosphatase 86 (34-104) Units/L Troponin I < 0.03 (< 0.04) ng/mL Serum Total Protein 7.1 (6.4-8.9) g/dL Albumin 4.2 (3.5-5.7) g/dL Globulin 2.9 (2.4-3.5) g/dL Albumin/Globulin Ratio 1.4 (1.1-2.2) Ur Specimen Adequacy Urine Color (Yellow) Urine Clarity (Clear) Urine pH (5.0-8.0) pH Units Ur Specific [place] (1.010-1.025) Urine Protein (Neg-Trace) mg/dL Urine Glucose (UA) (Normal) mg/dL Urine Ketones (Negative) mg/dL Urine Blood (Negative) Urine Nitrite (Negative) Urine Bilirubin (Negative) Urine Urobilinogen (Normal) mg/dL Ur Leukocyte Esterase (Negative) Urine Microscopic RBC (0-3) per hpf Urine Microscopic WBC (0-3) per hpf Urine Bacteria (None-Few) per hpf Ur Culture Indicated? (NO) Urine Opiates Screen (Ggugiy=708) ng/mL Ur Barbiturates Screen (Jlliui=535) ng/mL Ur Phencyclidine Scrn (Cutoff=25) ng/mL Ur Amphetamines Screen (Vtfkid=8869) ng/mL U Benzodiazepines Scrn (Qrdouc=964) ng/mL Urine Cocaine Screen (Cutoff= 300) ng/mL U Marijuana (THC) Screen (Cutoff = 50) ng/mL Ur Drug Screen Interp Ethyl Alcohol < 10 (Less than 10) mg/dL 05/08/18 05/08/18 05/08/18 Range/Units 05:28 06:10 06:10 WBC (4.3-11.1) K/mcL RBC (4.19-5.50) M/mcL Hgb (12.9-16.9) g/dL Hct (37.5-50.1) % MCV (83.0-100.0) fL MCH (28.0-33.3) pg MCHC (31.6-35.5) g/dL RDW (11.5-14.5) % Plt Count (140-400) K/mcL MPV (9.4-12.4) fL Immature Gran % (0-4) % Seg Neutrophils % % Lymphocytes % % Monocytes % % Eosinophils % % Basophils % % Neutrophils # (1.6-8.9) K/mcL Lymphocytes # (0.6-4.6) K/mcL Monocytes # (0.0-1.3) K/mcL Eosinophils # (0.0-0.6) K/mcL Basophils # (0.0-0.2) K/mcL PT (9.4-12.1) Seconds INR APTT (26.0-36.0) Seconds Sodium (136-145) mEq/L Potassium (3.5-5.1) mEq/L Chloride (98-107) mEq/L Carbon Dioxide (23-29) mEq/L BUN (8-23) mg/dL Creatinine (0.70-1.30) mg/dL Est GFR ( Amer) (> 60) Est GFR (Non-Af Amer) (> 60) BUN/Creatinine Ratio (6-26) Glucose (70-105) mg/dL Calculated Osmolality (280-300) Lactic Acid 6.5 H* (0.5-2.2) mmol/L Calcium (8.6-10.3) mg/dL Total Bilirubin (0.3-1.0) mg/dL Direct Bilirubin (0.0-0.2) mg/dL Indirect Bilirubin (0.0-1.2) mg/dL AST (13-39) Units/L ALT (7-52) Units/L Alkaline Phosphatase (34-104) Units/L Troponin I (< 0.04) ng/mL Serum Total Protein (6.4-8.9) g/dL Albumin (3.5-5.7) g/dL Globulin (2.4-3.5) g/dL Albumin/Globulin Ratio (1.1-2.2) Ur Specimen Adequacy See below A Urine Color Yellow (Yellow) Urine Clarity Turbid A (Clear) Urine pH 6.5 (5.0-8.0) pH Units Ur Specific [place] 1.012 (1.010-1.025) Urine Protein 100 H (Neg-Trace) mg/dL Urine Glucose (UA) Normal (Normal) mg/dL Urine Ketones Negative (Negative) mg/dL Urine Blood Small H (Negative) Urine Nitrite Negative (Negative) Urine Bilirubin Negative (Negative) Urine Urobilinogen Normal (Normal) mg/dL Ur Leukocyte Esterase Large H (Negative) Urine Microscopic RBC 0-3 (0-3) per hpf Urine Microscopic WBC 50-100 H (0-3) per hpf Urine Bacteria Many H (None-Few) per hpf Ur Culture Indicated? YES A (NO) Urine Opiates Screen Positive H (Nzkdag=959) ng/mL Ur Barbiturates Screen Negative (Gkohxb=331) ng/mL Ur Phencyclidine Scrn Negative (Cutoff=25) ng/mL Ur Amphetamines Screen Negative (Ofruif=9548) ng/mL U Benzodiazepines Scrn Positive H (Gqucoh=167) ng/mL Urine Cocaine Screen Negative (Cutoff= 300) ng/mL U Marijuana (THC) Screen Negative (Cutoff = 50) ng/mL Ur Drug Screen Interp See Below Ethyl Alcohol (Less than 10) mg/dL - EKG Data EKG #1 EKG attestation: Yes I reviewed and interpreted this EKG. EKG results narrative: Sinus rhythm. 73 beats for minute. ND interval 169, QRS 87, QTC 496. Significant artifact but no acute ST segment elevation or ischemia.
[2018-05-08 05:44] LABS: Basophils # 0.1 K/mcL (0.0-0.2); Basophils % 0.8 %; Eosinophils # 0.3 K/mcL (0.0-0.6); Eosinophils % 3.3 %; Hematocrit 39.5 % (37.5-50.1); Hemoglobin 12.4 g/dL (12.9-16.9); Immature Granulocytes % 0.5 % (0-4); Lymphocytes # 2.5 K/mcL (0.6-4.6); Mean Corpuscular HGB Conc 31.4 g/dL (31.6-35.5); Mean Corpuscular Hemoglobin 27.3 pg (28.0-33.3); Mean Corpuscular Volume 86.8 fL (83.0-100.0); Mean Platelet Volume 8.9 fL (9.4-12.4); Monocytes # 1.2 K/mcL (0.0-1.3); Monocytes % 11.7 %; Platelet Count 315 K/mcL (140-400); Red Blood Count 4.55 M/mcL (4.19-5.50); Red Cell Distribution Width 13.6 % (11.5-14.5); Segmented Neutrophils % 58.7 %
[2018-05-08 05:50] LABS: INR 0.9; Prothrombin Time 10.1 Seconds (9.4-12.1)
[2018-05-08 05:53] LABS: Activated Partial Thrombo Time 27.3 Seconds (26.0-36.0)
[2018-05-08 06:02] LABS: Alanine Aminotransferase 17 Units/L (7-52); Albumin 4.2 g/dL (3.5-5.7); Albumin/Globulin Ratio 1.4 (1.1-2.2); Alkaline Phosphatase 86 Units/L (34-104); Aspartate Amino Transferase 13 Units/L (13-39); BUN/Creatinine Ratio 18 (6-26); Bilirubin,Direct 0.1 mg/dL (0.0-0.2); Bilirubin,Indirect 0.3 mg/dL (0.0-1.2); Bilirubin,Total 0.4 mg/dL (0.3-1.0); Blood Urea Nitrogen 16 mg/dL (8-23); Calcium 9.4 mg/dL (8.6-10.3); Carbon Dioxide 23 mEq/L (23-29); Chloride 101 mEq/L (98-107); Ethanol < 10 mg/dL (Less than 10); Globulin 2.9 g/dL (2.4-3.5); Glucose 80 mg/dL (70-105); Osmolality,Calculated 286 (280-300); Potassium 3.8 mEq/L (3.5-5.1); Sodium 138 mEq/L (136-145); Total Protein 7.1 g/dL (6.4-8.9); Troponin I < 0.03 ng/mL (< 0.04); eGFR For Non-African Americans > 60 (> 60)
[2018-05-08 06:20] LABS: Bilirubin,Urine Negative (Negative); Blood,Urine Small (Negative); Clarity,Urine Turbid (Clear); Color,Urine Yellow (Yellow); Glucose,Urine (UA) Normal (Normal); Ketones,Urine Negative (Negative); Leukocyte Esterase,Urine Large (Negative); Nitrite,Urine Negative (Negative); PH,Urine 6.5 pH Units (5.0-8.0); Protein,Urine 100 mg/dL (Neg-Trace); Specific Gravity,Urine 1.012 (1.010-1.025); Urobilinogen,Urine Normal (Normal)
[2018-05-08 06:22] LABS: Amphetamine Screen,Urine Negative ng/mL (Cutoff=1000); Barbiturate Screen,Urine Negative ng/mL (Cutoff=200); Cannabinoid Screen,Urine Negative ng/mL (Cutoff = 50); Cocaine Screen,Urine Negative ng/mL (Cutoff= 300); Opiate Screen,Urine Positive ng/mL (Cutoff=300); Phencyclidine Screen,Urine Negative ng/mL (Cutoff=25)
[2018-05-08 06:25] LABS: Benzodiazepines Screen,Urine Positive ng/mL (Cutoff=300)
[2018-05-08 06:30] LABS: Bacteria,Urine Many per hpf (None-Few); RBC,Urine 0-3 per hpf (0-3); WBC,Urine 50-100 per hpf (0-3)
[2018-05-08] MEDS ORDERED: *HR* Morphine Immed Rel 30 MG TABLET PO STA (06:43)
[2018-05-08] MEDS ORDERED: cefTRIAXone 1,000 MG in Water for inj. (sterile) 20 ML 10 ML IVP ONE (06:43)
--- NOTE | 2018-05-08 07:50 | Emergency Department Note ---
Disposition Clinical Impression: Altered mental state Qualifiers: Altered mental status type: unspecified Qualified Code(s): R41.82 - Altered mental status, unspecified Disposition: Admitted As Inpatient Condition: Serious General Adult HPI - General Chief complaint: ED Altered Mental Status Stated complaint: Overdose Time Seen by Provider: 05/08/18 05:23 Source: family, EMS Mode of arrival: EMS Limitations: no limitations Nursing Notes Reviewed: Yes Vital Signs Reviewed: Yes - History of Present Illness Pain Scale: 0 - Related Data Home Medications Medication Instructions Recorded Confirmed Atorvastatin [Lipitor] 20 mg PO HS 10/23/17 10/23/17 Baclofen 20 mg PO TID 10/23/17 10/23/17 Citalopram Hydrobromide 40 mg PO DAILY 10/23/17 10/23/17 [Citalopram HBr] Lidocaine 1 patch TD Q12H 10/23/17 10/23/17 Lisinopril [Zestril] 40 mg PO DAILY 10/23/17 10/23/17 Memantine HCl 10 mg PO BID 10/23/17 10/23/17 Metoprolol XL (24 HR) Succ [Toprol 12.5 mg PO DAILY PRN 10/23/17 10/23/17 Xl] Morphine Sulfate SR (12 HR) [MS 100 mg PO 6XD 10/23/17 10/23/17 Contin] OxyCODONE Immed Rel [Roxicodone 30 30 mg PO Q6H 10/23/17 10/23/17 MG] Pioglitazone HCl [Actos] 15 mg PO DAILY 10/23/17 10/23/17 Propranolol HCl 40 mg PO TID 10/23/17 10/23/17 Sennosides [Senokot] 8.6 mg PO DAILY 10/23/17 10/23/17 hydrOXYzine HCl [Hydroxyzine HCl] 12.5 - 25 mg PO TID PRN 10/23/17 10/23/17 Allergies Allergy/AdvReac Type Severity Reaction Status Date / Time No Known Allergies Allergy Verified 10/23/17 07:20 Constitutional: Reports: fever, chills Eyes: Reports: as per HPI ENT ED: Reports: as per HPI Cardiovascular: Reports: as per HPI Respiratory: Reports: dyspnea, sputum production Gastrointestinal: Reports: as per HPI Genitourinary: Reports: as per HPI Musculoskeletal: Reports: as per HPI Integumentary: Reports: as per HPI Neurological: Reports: as per HPI Psychiatric: Reports: as per HPI Endocrine: Reports: as per HPI Hematological/Lymphatic: Reports: as per HPI Allergic/Immunologic: Reports: as per HPI Past Medical History - Past Medical History Medical history: Reports: diabetes, hyperlipidemia, hypertension, SVT, other Psychiatric history: Reports: anxiety, depression - Social History Smoking Status: Unknown if ever smoked Smokeless Tobacco Status: No Alcohol use: Reports: none, unknown Drug use: Reports: none, unknown Physical Exam - General Limitations: no limitations General appearance: anxious, in distress Course Vital Signs Temperature 98.2 F 05/08/18 04:55 Pulse Rate 102 05/08/18 04:55 Respiratory Rate 26 05/08/18 04:55 Blood Pressure 189/94 05/08/18 04:55 O2 Sat by Pulse Oximetry 100 05/08/18 04:55 Temperature 99.2 F 05/08/18 05:11 Pulse Rate 66 05/08/18 06:07 Respiratory Rate 24 05/08/18 06:07 Blood Pressure 176/105 05/08/18 06:07 O2 Sat by Pulse Oximetry 100 05/08/18 06:07 Oxygen Delivery Oxygen Delivery Non Rebreather Mask Medical Decision Making - Lab Data Lab results reviewed: Yes I reviewed the patient's lab results. Result diagrams: 05/08/18 05:28 05/08/18 05:28 Lab Results 05/08/18 05/08/18 05/08/18 Range/Units 05:28 05:28 05:28 WBC 10.1 (4.3-11.1) K/mcL RBC 4.55 (4.19-5.50) M/mcL Hgb 12.4 L (12.9-16.9) g/dL Hct 39.5 (37.5-50.1) % MCV 86.8 (83.0-100.0) fL MCH 27.3 L (28.0-33.3) pg MCHC 31.4 L (31.6-35.5) g/dL RDW 13.6 (11.5-14.5) % Plt Count 315 (140-400) K/mcL MPV 8.9 L (9.4-12.4) fL Immature Gran % 0.5 (0-4) % Seg Neutrophils % 58.7 % Lymphocytes % 25.0 % Monocytes % 11.7 % Eosinophils % 3.3 % Basophils % 0.8 % Neutrophils # 6.0 (1.6-8.9) K/mcL Lymphocytes # 2.5 (0.6-4.6) K/mcL Monocytes # 1.2 (0.0-1.3) K/mcL Eosinophils # 0.3 (0.0-0.6) K/mcL Basophils # 0.1 (0.0-0.2) K/mcL PT 10.1 (9.4-12.1) Seconds INR 0.9 APTT 27.3 (26.0-36.0) Seconds Sodium 138 (136-145) mEq/L Potassium 3.8 (3.5-5.1) mEq/L Chloride 101 (98-107) mEq/L Carbon Dioxide 23 (23-29) mEq/L BUN 16 (8-23) mg/dL Creatinine 0.90 (0.70-1.30) mg/dL Est GFR ( Amer) > 60 (> 60) Est GFR (Non-Af Amer) > 60 (> 60) BUN/Creatinine Ratio 18 (6-26) Glucose 80 (70-105) mg/dL Calculated Osmolality 286 (280-300) Lactic Acid (0.5-2.2) mmol/L Calcium 9.4 (8.6-10.3) mg/dL Total Bilirubin 0.4 (0.3-1.0) mg/dL Direct Bilirubin 0.1 (0.0-0.2) mg/dL Indirect Bilirubin 0.3 (0.0-1.2) mg/dL AST 13 (13-39) Units/L ALT 17 (7-52) Units/L Alkaline Phosphatase 86 (34-104) Units/L Troponin I < 0.03 (< 0.04) ng/mL Serum Total Protein 7.1 (6.4-8.9) g/dL Albumin 4.2 (3.5-5.7) g/dL Globulin 2.9 (2.4-3.5) g/dL Albumin/Globulin Ratio 1.4 (1.1-2.2) Ur Specimen Adequacy Urine Color (Yellow) Urine Clarity (Clear) Urine pH (5.0-8.0) pH Units Ur Specific [place] (1.010-1.025) Urine Protein (Neg-Trace) mg/dL Urine Glucose (UA) (Normal) mg/dL Urine Ketones (Negative) mg/dL Urine Blood (Negative) Urine Nitrite (Negative) Urine Bilirubin (Negative) Urine Urobilinogen (Normal) mg/dL Ur Leukocyte Esterase (Negative) Urine Microscopic RBC (0-3) per hpf Urine Microscopic WBC (0-3) per hpf Urine Bacteria (None-Few) per hpf Ur Culture Indicated? (NO) Urine Opiates Screen (Ehxjdg=222) ng/mL Ur Barbiturates Screen (Kgesvs=146) ng/mL Ur Phencyclidine Scrn (Cutoff=25) ng/mL Ur Amphetamines Screen (Cwnejq=3108) ng/mL U Benzodiazepines Scrn (Gwrczq=185) ng/mL Urine Cocaine Screen (Cutoff= 300) ng/mL U Marijuana (THC) Screen (Cutoff = 50) ng/mL Ur Drug Screen Interp Ethyl Alcohol < 10 (Less than 10) mg/dL 05/08/18 05/08/18 05/08/18 Range/Units 05:28 06:10 06:10 WBC (4.3-11.1) K/mcL RBC (4.19-5.50) M/mcL Hgb (12.9-16.9) g/dL Hct (37.5-50.1) % MCV (83.0-100.0) fL MCH (28.0-33.3) pg MCHC (31.6-35.5) g/dL RDW (11.5-14.5) % Plt Count (140-400) K/mcL MPV (9.4-12.4) fL Immature Gran % (0-4) % Seg Neutrophils % % Lymphocytes % % Monocytes % % Eosinophils % % Basophils % % Neutrophils # (1.6-8.9) K/mcL Lymphocytes # (0.6-4.6) K/mcL Monocytes # (0.0-1.3) K/mcL Eosinophils # (0.0-0.6) K/mcL Basophils # (0.0-0.2) K/mcL PT (9.4-12.1) Seconds INR APTT (26.0-36.0) Seconds Sodium (136-145) mEq/L Potassium (3.5-5.1) mEq/L Chloride (98-107) mEq/L Carbon Dioxide (23-29) mEq/L BUN (8-23) mg/dL Creatinine (0.70-1.30) mg/dL Est GFR ( Amer) (> 60) Est GFR (Non-Af Amer) (> 60) BUN/Creatinine Ratio (6-26) Glucose (70-105) mg/dL Calculated Osmolality (280-300) Lactic Acid 6.5 H* (0.5-2.2) mmol/L Calcium (8.6-10.3) mg/dL Total Bilirubin (0.3-1.0) mg/dL Direct Bilirubin (0.0-0.2) mg/dL Indirect Bilirubin (0.0-1.2) mg/dL AST (13-39) Units/L ALT (7-52) Units/L Alkaline Phosphatase (34-104) Units/L Troponin I (< 0.04) ng/mL Serum Total Protein (6.4-8.9) g/dL Albumin (3.5-5.7) g/dL Globulin (2.4-3.5) g/dL Albumin/Globulin Ratio (1.1-2.2) Ur Specimen Adequacy See below A Urine Color Yellow (Yellow) Urine Clarity Turbid A (Clear) Urine pH 6.5 (5.0-8.0) pH Units Ur Specific [place] 1.012 (1.010-1.025) Urine Protein 100 H (Neg-Trace) mg/dL Urine Glucose (UA) Normal (Normal) mg/dL Urine Ketones Negative (Negative) mg/dL Urine Blood Small H (Negative) Urine Nitrite Negative (Negative) Urine Bilirubin Negative (Negative) Urine Urobilinogen Normal (Normal) mg/dL Ur Leukocyte Esterase Large H (Negative) Urine Microscopic RBC 0-3 (0-3) per hpf Urine Microscopic WBC 50-100 H (0-3) per hpf Urine Bacteria Many H (None-Few) per hpf Ur Culture Indicated? YES A (NO) Urine Opiates Screen Positive H (Denaob=409) ng/mL Ur Barbiturates Screen Negative (Mxlrfc=697) ng/mL Ur Phencyclidine Scrn Negative (Cutoff=25) ng/mL Ur Amphetamines Screen Negative (Laqchu=5800) ng/mL U Benzodiazepines Scrn Positive H (Herbkx=500) ng/mL Urine Cocaine Screen Negative (Cutoff= 300) ng/mL U Marijuana (THC) Screen Negative (Cutoff = 50) ng/mL Ur Drug Screen Interp See Below Ethyl Alcohol (Less than 10) mg/dL - Radiology Data Radiology results reviewed: Yes I reviewed the patient's radiology results. Chest X-Ray 05/08/18 05:23 IMPRESSION: No acute cardiopulmonary disease. D/ / Luiz Storey MD / Luiz Storey MD Interpreting Provider: Luiz Storey MD Head CT 05/08/18 05:23 IMPRESSION: Severely limited study with no definite acute hemorrhage or evidence for acute ischemia. Repeat study is recommended once the patient is able or willing to remain still. D/ / Jorge Devine MD / Jorge Devine MD Interpreting Provider: Jorge Devine MD - EKG Data EKG #1 EKG attestation: Yes I reviewed and interpreted this EKG. EKG results narrative: EKG shows a normal sinus rhythm with ventricular rate of 73. No acute ST segment elevation or depression. No arrhythmia or ectopy. Critical Care Time Critical Care Time: Yes Total Critical Care Time: 45 Attestation: Critical care performed: Time is exclusive of separately billable procedures. Time includes: direct patient care, patient reassessment, coordination of patient care, interpretation of data (laboratory data, radiology data, and respiratory data), review of patient's medical records, medical consultation and documentation of patient care. Procedures included in critical care time: Procedures excluded from critical care time: Attestation Statement - Attestation Attestation: Zackary eCdeno MD, personally evaluated this patient and discussed their management with the resident physician. I reviewed the resident's note and agree with the documented findings, medical decision making, and plan of care. 63-year-old male presents to the emergency department with altered mental s tatus. Patient is paraplegic. reports that he has not felt well for the past 2 days and has been sleeping more than usual. He has had some subjective fever and chills. Tonight he awoke during the night and was confused and thrashing. He kept saying help me. He told his he took too much of his pain medication and requested his Narcan. After he took the Narcan he seemed to get worse. EMS reports that on their arrival patient was thrashing and combative. His oxygen saturation was in the low 90s so they placed him on a nonrebreather. They were unable to obtain vital signs her IV access due to patient's combative behavior in route. On arrival here in the emergency department the patient is alert but is thrashing and combative and having to be held down on the stretcher. He keeps saying help me and keeps saying I cannot breathe although his oxygen saturation is 100%. Patient received additional Narcan per EMS with no change. On examination patient is a well-developed well-nourished male in moderate distress. Patient is paraplegic. He is alert but is confused and combative and thrashing and having to be physically restrained. No cyanosis or diaphoresis. Breath sounds are equal bilaterally with no definite rales or wheezes noted. Heart regular rate and rhythm. Abdomen soft with present bowel sounds. Labs reviewed. Elevated lactic acid likely due to patient's several hours of physical thrashing and combative behavior. Chest x-ray negative. Head CT neg ative. No acute changes on EKG. Patient received Ativan 2 mg IV with no improvement. He then received ketamine with good sedation. I reviewed ketamine wore off after a period of time and patient became combative again but not as severe. He received a dose of morphine as he is on huge doses of morphine and oxycodone and received Narcan and part of his symptoms could be related to withdrawal. The hospitalist was consulted and accepted admission of the patient.
[2018-05-08] MEDS ORDERED: Naloxone 0.4 MG/ML INJ IVP PRN (08:05)
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
[2018-05-08] MEDS ORDERED: *HR* Morphine Sulfate SR (12 HR) 100 MG TABLET.ER PO PRN (15:15)
[2018-05-08] MEDS: *HR* Morphine Sulfate SR (12 HR) 60 MG TABLET.ER PO SCH (18:45)
[2018-05-08] MEDS: Baclofen 10 MG TABLET PO SCH (20:50)
[2018-05-09 04:39] LABS: Basophils % 0.5 %; Eosinophils # 0.3 K/mcL (0.0-0.6); Eosinophils % 3.4 %; Hematocrit 36.1 % (37.5-50.1); Hemoglobin 11.5 g/dL (12.9-16.9); Immature Granulocytes % 0.4 % (0-4); Lymphocytes # 2.1 K/mcL (0.6-4.6); Lymphocytes % 27.6 %; Mean Corpuscular HGB Conc 31.9 g/dL (31.6-35.5); Mean Corpuscular Hemoglobin 27.6 pg (28.0-33.3); Mean Corpuscular Volume 86.6 fL (83.0-100.0); Mean Platelet Volume 9.1 fL (9.4-12.4); Monocytes # 0.7 K/mcL (0.0-1.3); Neutrophils # 4.6 K/mcL (1.6-8.9); Platelet Count 268 K/mcL (140-400); Red Blood Count 4.17 M/mcL (4.19-5.50); Segmented Neutrophils % 59.1 %
[2018-05-09 04:59] LABS: BUN/Creatinine Ratio 13 (6-26); Blood Urea Nitrogen 8 mg/dL (8-23); Calcium 9.2 mg/dL (8.6-10.3); Carbon Dioxide 31 mEq/L (23-29); Chloride 102 mEq/L (98-107); Glucose 104 mg/dL (70-105); Osmolality,Calculated 289 (280-300); Potassium 3.9 mEq/L (3.5-5.1); Sodium 140 mEq/L (136-145); eGFR For Non-African Americans > 60 (> 60)
[2018-05-09] MEDS: *HR* Morphine Sulfate SR (12 HR) 60 MG TABLET.ER PO SCH (05:07)
[2018-05-09] MEDS ORDERED: *HR* Enoxaparin 40 MG/0.4 ML SYRINGE SQ SCH (06:00)
[2018-05-09] MEDS ORDERED: Famotidine 20 MG TABLET PO SCH (09:00)
[2018-05-09] MEDS ORDERED: Lisinopril 20 MG TABLET PO SCH (09:00)
[2018-05-09] MEDS ORDERED: Sennosides 8.6 MG TABLET PO SCH (09:00)
[2018-05-09] MEDS ORDERED: cefTRIAXone 2,000 MG in 0.9 % Sodium Chloride Mini Bag 100 ML IVPB SCH (09:00)
[2018-05-09] MEDS: Baclofen 10 MG TABLET PO SCH (09:42)
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
[2018-05-09 11:41] VITALS: BP 123/62
== END 2018-05-09 14:06 | disposition home or self-care (01) | DRG 689 ==
LOC: 2ANU 04:53 → EMEROOARM 04:53 → 2NNU 08:54
PROVIDERS: ADMIT Internal Medicine; ATTEND Internal Medicine

== ENCOUNTER 2018-11-25 06:21 | Observation (INO) ==
[2018-11-25 06:57] LABS: Basophils # 0.1 K/mcL (0.0-0.2); Basophils % 0.6 %; Eosinophils # 0.2 K/mcL (0.0-0.6); Eosinophils % 1.9 %; Hematocrit 34.7 % (37.5-50.1); Hemoglobin 10.7 g/dL (12.9-16.9); Immature Granulocytes % 0.3 % (0-4); Lymphocytes # 2.1 K/mcL (0.6-4.6); Lymphocytes % 23.4 %; Mean Corpuscular HGB Conc 30.8 g/dL (31.6-35.5); Mean Corpuscular Hemoglobin 26.4 pg (28.0-33.3); Mean Corpuscular Volume 85.5 fL (83.0-100.0); Mean Platelet Volume 8.3 fL (9.4-12.4); Monocytes # 0.7 K/mcL (0.0-1.3); Monocytes % 7.5 %; Neutrophils # 5.9 K/mcL (1.6-8.9); Platelet Count 299 K/mcL (140-400); Red Blood Count 4.06 M/mcL (4.19-5.50); Red Cell Distribution Width 14.4 % (11.5-14.5); Segmented Neutrophils % 66.3 %
[2018-11-25 07:18] LABS: BUN/Creatinine Ratio 16 (6-26); Blood Urea Nitrogen 15 mg/dL (8-23); Calcium 9.5 mg/dL (8.6-10.3); Carbon Dioxide 32 mEq/L (23-29); Chloride 99 mEq/L (98-107); Glucose 109 mg/dL (70-105); Osmolality,Calculated 287 (280-300); Potassium 4.2 mEq/L (3.5-5.1); Sodium 138 mEq/L (136-145); eGFR For Non-African Americans > 60 (> 60)
[2018-11-25 07:19] LABS: Troponin I < 0.03 ng/mL (< 0.04)
--- NOTE | 2018-11-25 07:24 | Emergency Department Note ---
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 - Related Data Home Medications Medication Instructions Recorded Confirmed Baclofen 20 mg PO BID 10/23/17 10/11/18 Lidocaine 2 patch TD DAILY 10/23/17 10/11/18 Lisinopril [Zestril] 20 mg PO BID 10/23/17 10/11/18 Pioglitazone HCl [Actos] 15 mg PO DAILY 10/23/17 10/11/18 hydrOXYzine HCl [Hydroxyzine HCl] 12.5 - 25 mg PO TID PRN 10/23/17 10/11/18 Citalopram Hydrobromide 40 mg PO DAILY 10/11/18 10/11/18 [Citalopram HBr] Ergocalciferol (VITAMIN D2) 50,000 unit PO QWEEK 10/11/18 10/11/18 [Vitamin D2] Meloxicam [Mobic] 15 mg PO DAILY 10/11/18 10/11/18 Metoprolol [Lopressor] 25 mg PO DAILY 10/11/18 10/11/18 Morphine Immed Rel [Morphine 15 mg PO TID 10/11/18 10/11/18 Sulfate] Morphine Sulfate [Arymo ER] 60 mg PO QID 10/11/18 10/11/18 Oxycodone HCl [Oxycodone HCl ER] 30 mg PO QID 10/11/18 10/11/18 Pravastatin Sodium [Pravachol] 20 mg PO BID 10/11/18 10/11/18 Allergies Allergy/AdvReac Type Severity Reaction Status Date / Time No Known Allergies Allergy Verified 10/23/17 07:20 Past Medical History - Past Medical History Medical history: Reports: hyperlipidemia, hypertension, SVT, other Psychiatric history: Reports: no psych history - Social History Smoking Status: Never smoker Smokeless Tobacco Status: No Alcohol use: Reports: none Drug use: Reports: none Physical Exam - General Limitations: no limitations General appearance: alert, in no apparent distress Course Vital Signs Temperature 97.7 F 11/25/18 06:25 Pulse Rate 67 11/25/18 06:25 Respiratory Rate 20 11/25/18 06:25 Blood Pressure 125/76 11/25/18 06:25 O2 Sat by Pulse Oximetry 84 11/25/18 06:25 Temperature 97.7 F 11/25/18 06:25 Pulse Rate 67 11/25/18 06:25 Respiratory Rate 20 11/25/18 06:25 Blood Pressure 125/76 11/25/18 06:25 O2 Sat by Pulse Oximetry 100 11/25/18 06:31 Oxygen Delivery Oxygen Delivery Nasal Cannula Shortness of Breath/Dyspnea - Lab Data Result diagrams: 11/25/18 06:48 11/25/18 06:48 Lab Results 11/25/18 11/25/18 11/25/18 Range/Units 06:48 06:48 06:48 WBC 8.9 (4.3-11.1) K/mcL RBC 4.06 L (4.19-5.50) M/mcL Hgb 10.7 L (12.9-16.9) g/dL Hct 34.7 L (37.5-50.1) % MCV 85.5 (83.0-100.0) fL MCH 26.4 L (28.0-33.3) pg MCHC 30.8 L (31.6-35.5) g/dL RDW 14.4 (11.5-14.5) % Plt Count 299 (140-400) K/mcL MPV 8.3 L (9.4-12.4) fL Immature Gran % 0.3 (0-4) % Seg Neutrophils % 66.3 % Lymphocytes % 23.4 % Monocytes % 7.5 % Eosinophils % 1.9 % Basophils % 0.6 % Neutrophils # 5.9 (1.6-8.9) K/mcL Lymphocytes # 2.1 (0.6-4.6) K/mcL Monocytes # 0.7 (0.0-1.3) K/mcL Eosinophils # 0.2 (0.0-0.6) K/mcL Basophils # 0.1 (0.0-0.2) K/mcL Sodium 138 (136-145) mEq/L Potassium 4.2 (3.5-5.1) mEq/L Chloride 99 (98-107) mEq/L Carbon Dioxide 32 H (23-29) mEq/L BUN 15 (8-23) mg/dL Creatinine 0.96 (0.70-1.30) mg/dL Est GFR ( Amer) > 60 (> 60) Est GFR (Non-Af Amer) > 60 (> 60) BUN/Creatinine Ratio 16 (6-26) Glucose 109 H (70-105) mg/dL Calculated Osmolality 287 (280-300) Lactic Acid 1.7 (0.5-2.2) mmol/L Calcium 9.5 (8.6-10.3) mg/dL Troponin I < 0.03 (< 0.04) ng/mL
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
[2018-11-25] MEDS ORDERED: Isovue-370 500 ML BOTTLE IVP ONE (07:47)
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
[2018-11-25 09:12] LABS: Bilirubin,Urine Negative (Negative); Blood,Urine Negative (Negative); Clarity,Urine Clear (Clear); Color,Urine Yellow (Yellow); Glucose,Urine (UA) Normal (Normal); Ketones,Urine Negative (Negative); Leukocyte Esterase,Urine Moderate (Negative); Nitrite,Urine Negative (Negative); Protein,Urine Negative (Neg-Trace); Specific Gravity,Urine 1.016 (1.010-1.025); Urobilinogen,Urine Normal (Normal)
[2018-11-25 09:14] LABS: Bacteria,Urine None Seen per hpf (None-Few); Hyaline Casts,Urine None Seen per lpf (None-Few); RBC,Urine 0-3 per hpf (0-3); Squamous Epithelial Cell,Urine Many per lpf (None-Few); WBC,Urine 15-30 per hpf (0-3)
[2018-11-25 11:31] LABS: ABG Base Excess 6 mEq/L (-2 to 3); ABG HCO3 31 mEq/L (21-27); ABG Oxygen Saturation 92 % (95-98); ABG PCO2 47 mmHg (35-45); ABG PH 7.43 pH Units (7.32-7.45); ABG PO2 64 mmHg (85-104); ABG TCO2 33 mEq/L (20-26)
[2018-11-25] MEDS ORDERED: Acetaminophen 325 MG TABLET PO PRN (13:48)
[2018-11-25] MEDS ORDERED: Naloxone 0.4 MG/ML INJ IVP PRN (13:48)
[2018-11-25] MEDS ORDERED: Ondansetron 4 MG/2 ML VIAL IVP PRN (13:48)
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
[2018-11-25] MEDS: Ipratropium/Albuterol Neb 3 ML IH SCH ×2 (15:47→19:56)
[2018-11-25] MEDS ORDERED: MORPHINE SULFATE 60 MG PO SCH (17:00)
[2018-11-25] MEDS: cefTRIAXone 1,000 MG in Water for inj. (sterile) 20 ML 10 ML IVP SCH (17:08)
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
[2018-11-25] MEDS: Baclofen 10 MG TABLET PO SCH (20:05)
[2018-11-25] MEDS: *HR* HYDROcodone/Acet 5/325 mg TABLET PO PRN (20:10)
[2018-11-25] MEDS: Lisinopril 20 MG TABLET PO SCH (21:42)
[2018-11-25] MEDS: *HR* Morphine Immed Rel 15 MG TABLET PO PRN (21:44)
[2018-11-26] MEDS: Ipratropium/Albuterol Neb 3 ML IH SCH ×4 (00:08→11:00)
[2018-11-26] MEDS ORDERED: Melatonin 3 MG TABLET PO PRN (02:38)
[2018-11-26] MEDS: *HR* HYDROcodone/Acet 5/325 mg TABLET PO PRN (03:06)
--- NOTE | 2018-11-26 06:18 | Electrocardiograph Report ---
[employer] Test Date: 2018-11-25 Pat Name: Clint Castillo Department: [id number] Room: 3B13 Gender: M Roof Slater: : 1955 Requested By: Blake Mac Order Number: [id number] Reading MD: Jose Miguel Colon Measurements Intervals Ward Rate: 66 P: 30 SD: 181 QRS: 71 QRSD: 101 T: 30 QT: 441 QTc: 463 Interpretive Statements Sinus rhythm Artifact in lead(s) I III aVR aVL V1 V2 Electronically Signed On 11-26-2018 6:16:50 EDT by Jose Miguel Colon
[2018-11-26 08:44] VITALS: BP 138/69
[2018-11-26] MEDS: *HR* Morphine Immed Rel 15 MG TABLET PO PRN ×2 (09:10→14:41)
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
[2018-11-26] MEDS: Baclofen 10 MG TABLET PO SCH ×2 (11:09→14:39)
[2018-11-26] MEDS: Lisinopril 20 MG TABLET PO SCH ×2 (11:10→14:39)
[2018-11-26] MEDS: cefTRIAXone 1,000 MG in Water for inj. (sterile) 20 ML 10 ML IVP SCH ×2 (11:10→14:41)
== END 2018-11-26 15:00 | disposition home or self-care (01) ==
LOC: EMEROOARM 06:21 → 3BNU 06:21 → SUATTDRO 12:56 → 3BNU 14:06
PROVIDERS: ADMIT Internal Medicine Nephrology; ATTEND Family Medicine

== ENCOUNTER 2020-12-08 10:11 | Inpatient (IN) ==
[2020-12-08 10:31] LABS: ABG Base Excess 2 mEq/L (-2 to 3); ABG HCO3 28 mEq/L (21-27); ABG Oxygen Saturation 87 % (95-98); ABG PCO2 48 mmHg (35-45); ABG PH 7.38 pH Units (7.32-7.45); ABG PO2 55 mmHg (85-104); ABG TCO2 29 mEq/L (20-26)
[2020-12-08] MEDS ORDERED: *HR* Propofol 200 MG/20 ML VIAL IVP ONE (10:57)
[2020-12-08] MEDS ORDERED: 0.9 % Sodium Chloride 1,000 ML IV ONE (11:05)
[2020-12-08 11:08] LABS: Basophils # 0.1 K/mcL (0.0-0.2); Basophils % 0.4 %; Eosinophils % 0.1 %; Hemoglobin 12.7 g/dL (12.9-16.9); Immature Granulocytes % 0.6 % (0-4); Lymphocytes # 1.6 K/mcL (0.6-4.6); Lymphocytes % 7.7 %; Mean Corpuscular HGB Conc 29.5 g/dL (31.6-35.5); Mean Corpuscular Hemoglobin 24.6 pg (28.0-33.3); Mean Corpuscular Volume 83.2 fL (83.0-100.0); Mean Platelet Volume 8.5 fL (9.4-12.4); Monocytes # 0.8 K/mcL (0.0-1.3); Monocytes % 3.6 %; Neutrophils # 18.8 K/mcL (1.6-8.9); Platelet Count 519 K/mcL (140-400); Red Blood Count 5.17 M/mcL (4.19-5.50); Red Cell Distribution Width 14.6 % (11.5-14.5); Segmented Neutrophils % 87.6 %; White Blood Count 21.4 K/mcL (4.3-11.1)
[2020-12-08] MEDS ORDERED: Isovue-370 500 ML BOTTLE IVP ONE (11:08)
[2020-12-08] MEDS ORDERED: Piperacillin/Tazobactam 3.375 GM in 0.9 % Sodium Chloride Mini Bag 100 ML IVPB ONE (11:09)
[2020-12-08] MEDS ORDERED: Vancomycin 1,500 MG/265 ML IV.SOLN IVPB ONE (11:09)
[2020-12-08 11:16] LABS: INR 1.1; Prothrombin Time 12.3 Seconds (9.4-12.1)
[2020-12-08 11:18] LABS: Activated Partial Thrombo Time 23.4 Seconds (26.0-36.0)
[2020-12-08 11:39] LABS: ABG Base Excess 1 mEq/L (-2 to 3); ABG HCO3 25 mEq/L (21-27); ABG Oxygen Saturation 100 % (95-98); ABG PCO2 37 mmHg (35-45); ABG PH 7.45 pH Units (7.32-7.45); ABG PO2 167 mmHg (85-104); ABG TCO2 26 mEq/L (20-26); Blood Gas Modality ASSIST CONTROL; Blood Gas VT 550 cc
[2020-12-08] MEDS ORDERED: *HR* Atropine Sulfate 1 MG/10 ML SYRINGE IVP ONE (11:42)
[2020-12-08 12:36] LABS: Alanine Aminotransferase 18 Units/L (7-52); Albumin 4.1 g/dL (3.5-5.7); Albumin/Globulin Ratio 1.1 (1.1-2.2); Alkaline Phosphatase 123 Units/L (34-104); Aspartate Amino Transferase 11 Units/L (13-39); BUN/Creatinine Ratio 14 (6-26); Bilirubin,Direct 0.1 mg/dL (0.0-0.2); Bilirubin,Indirect 0.4 mg/dL (0.0-1.0); Bilirubin,Total 0.5 mg/dL (0.3-1.0); Blood Urea Nitrogen 27 mg/dL (8-23); Calcium 9.5 mg/dL (8.6-10.3); Carbon Dioxide 23 mEq/L (23-29); Chloride 96 mEq/L (98-107); Creatine Kinase 46 Units/L (30-223); Ethanol < 10 mg/dL (Less than 10); Globulin 3.6 g/dL (2.4-3.5); Glucose 209 mg/dL (70-105); Magnesium 2.1 mg/dL (1.6-2.6); Osmolality,Calculated 295 (280-300); Potassium 4.9 mEq/L (3.5-5.1); Sodium 137 mEq/L (136-145); Total Protein 7.7 g/dL (6.4-8.9); eGFR For African Americans 41 (> 60); eGFR For Non-African Americans 34 (> 60)
[2020-12-08] MEDS ORDERED: Acetaminophen 325 MG TABLET PO PRN (13:04)
[2020-12-08] MEDS ORDERED: Artificial Tears SOLN 15 ML BOTTLE BOTH EYES PRN (13:04)
[2020-12-08] MEDS ORDERED: Naloxone 0.4 MG/ML INJ IVP PRN (13:04)
[2020-12-08] MEDS: FentaNYL (PF) 1,000 MCG/100 ML IV.SOLN IVC SCH ×2 (13:13→20:45)
[2020-12-08] MEDS ORDERED: *HR* Etomidate 20 MG/10 ML AMPUL IVP ONE (13:18)
[2020-12-08] MEDS ORDERED: *HR* Succinylcholine 200 MG/10 ML VIAL IVP ONE (13:18)
[2020-12-08] MEDS ORDERED: *HR* Heparin 5,000 UNIT/ML VIAL IVP ONE (13:20)
[2020-12-08] MEDS ORDERED: *HR* Heparin 5,000 UNIT/ML VIAL IVP PRN ×2 (13:20)
[2020-12-08 13:24] LABS: Adenovirus Not Detected (Not Detect); Bordetella Pertussis Not Detected (Not Detect); Chlamydophila pneumoniae Not Detected (Not Detect); Coronavirus 229E Not Detected (Not Detect); Coronavirus HKU1 Not Detected (Not Detect); Coronavirus NL63 Not Detected (Not Detect); Coronavirus OC43 Not Detected (Not Detect); Human Metapneumovirus Not Detected (Not Detect); Human Rhinovirus/Enterovirus Not Detected (Not Detect); Influenza A Subtype 2009 H1 Not Detected (Not Detect); Influenza B Not Detected (Not Detect); Mycoplasma pneumoniae Not Detected (Not Detect); Parainfluenza Virus 1 Not Detected (Not Detect); Parainfluenza Virus 2 Not Detected (Not Detect); Parainfluenza Virus 3 Not Detected (Not Detect); Parainfluenza Virus 4 Not Detected (Not Detect); Respiratory Syncytial Virus Not Detected (Not Detect); SARS-CoV-2 Not Detected (Not Detect)
[2020-12-08] MEDS ORDERED: Heparin 25,000UNIT/250ML 1/2NS 25,000 UNIT/250 ML IV.SOLN IVC SCH (13:30)
[2020-12-08] MEDS ORDERED: Vancomycin (wt based) 1,000 MG VIAL IVPB SCH (14:00)
[2020-12-08 14:20] LABS: Troponin I 0.03 ng/mL (< 0.04)
[2020-12-08 14:34] LABS: Thyroid Stimulating Hormone 0.263 mcIU/mL (0.340-5.600)
[2020-12-08] MEDS ORDERED: D5% in Water 1,000 ML IVC PRN (15:07)
[2020-12-08] MEDS ORDERED: Dextrose Gel 15 GM/37.5 ML TUBE PO PRN ×2 (15:07)
[2020-12-08] MEDS ORDERED: *HR* Dextrose 50 % in Water (Vial) 50 ML VIAL IVP PRN (15:07)
[2020-12-08 15:58] LABS: Bacteria,Urine Few per hpf (None-Few); Bilirubin,Urine Small (Negative); Blood,Urine Trace (Negative); Clarity,Urine Turbid (Clear); Color,Urine Yellow (Yellow); Glucose,Urine (UA) Normal (Normal); Hyaline Casts,Urine Moderate per lpf (None Seen); Ketones,Urine 10 mg/dL (Negative); Leukocyte Esterase,Urine Large (Negative); Mucus,Urine Many per lpf (None-Few); Nitrite,Urine Negative (Negative); Protein,Urine 50 mg/dL (Neg-Trace); Specific Gravity,Urine 1.022 (1.010-1.025); Squamous Epithelial Cell,Urine Few per hpf (None-Few); WBC,Urine TNTC per hpf (0-3)
[2020-12-08] MEDS: 0.9 % Sodium Chloride 1,000 ML IVC SCH ×2 (16:15→17:56)
[2020-12-08 16:25] LABS: Amphetamine Screen,Urine Negative ng/mL (Cutoff=1000); Barbiturate Screen,Urine Negative ng/mL (Cutoff=200); Benzodiazepines Screen,Urine Positive ng/mL (Cutoff=200); Cannabinoid Screen,Urine Positive ng/mL (Cutoff = 50); Cocaine Screen,Urine Negative ng/mL (Cutoff= 300); Opiate Screen,Urine Positive ng/mL (Cutoff=300); Phencyclidine Screen,Urine Negative ng/mL (Cutoff=25)
[2020-12-08] MEDS: Norepinephrine 4 MG/254 ML IV.SOLN IVC SCH (16:32)
[2020-12-08] MEDS ORDERED: *HR* Atropine Sulfate 1 MG/10 ML SYRINGE ONE (16:40)
[2020-12-08] MEDS: Midazolam HCl 50 MG/100 ML IV.SOLN IVC SCH ×2 (16:47→20:45)
[2020-12-08] MEDS: Piperacillin/Tazobactam 3.375 GM in 0.9 % Sodium Chloride Mini Bag 100 ML IVPB SCH (16:48)
[2020-12-08] MEDS: Artificial Tears SOLN 15 ML BOTTLE BOTH EYES SCH ×2 (16:48→20:13)
[2020-12-08] MEDS ORDERED: Vancomycin 1 EACH in 0.9 % Sodium Chloride 250 ML IVPB SCH (17:00)
[2020-12-08] MEDS ORDERED: *HR* Heparin 5,000 UNIT/ML VIAL SQ SCH (18:00)
[2020-12-08] MEDS: Insulin LISPRO 300 UNITS/3 ML VIAL SUBQ SCH (20:12)
[2020-12-08] MEDS: Chlorhexidine Rinse 15 ML MOUTHWASH MM SCH (20:12)
[2020-12-09] MEDS: Artificial Tears SOLN 15 ML BOTTLE BOTH EYES SCH ×3 (00:10→07:44)
[2020-12-09] MEDS: Piperacillin/Tazobactam 3.375 GM in 0.9 % Sodium Chloride Mini Bag 100 ML IVPB SCH ×4 (00:10→23:49)
[2020-12-09] MEDS: Insulin LISPRO 300 UNITS/3 ML VIAL SUBQ SCH ×4 (00:10→18:23)
[2020-12-09 03:42] LABS: VBG Ionized Calcium 1.17 mmol/L (1.15-1.35)
[2020-12-09 03:47] LABS: Basophils # 0.1 K/mcL (0.0-0.2); Basophils % 0.4 %; Eosinophils % 0.2 %; Hematocrit 30.9 % (37.5-50.1); Immature Granulocytes % 0.8 % (0-4); Lymphocytes # 1.6 K/mcL (0.6-4.6); Lymphocytes % 11.1 %; Mean Corpuscular HGB Conc 30.4 g/dL (31.6-35.5); Mean Corpuscular Hemoglobin 24.8 pg (28.0-33.3); Mean Corpuscular Volume 81.5 fL (83.0-100.0); Mean Platelet Volume 8.3 fL (9.4-12.4); Monocytes % 6.8 %; Neutrophils # 11.5 K/mcL (1.6-8.9); Platelet Count 352 K/mcL (140-400); Red Blood Count 3.79 M/mcL (4.19-5.50); Red Cell Distribution Width 14.6 % (11.5-14.5); Segmented Neutrophils % 80.7 %; White Blood Count 14.3 K/mcL (4.3-11.1)
[2020-12-09 03:48] LABS: Hemoglobin 9.4 g/dL (12.9-16.9)
[2020-12-09] MEDS: FentaNYL (PF) 1,000 MCG/100 ML IV.SOLN IVC SCH (03:58)
[2020-12-09 04:02] LABS: Alanine Aminotransferase 11 Units/L (7-52); Albumin 3.1 g/dL (3.5-5.7); Albumin/Globulin Ratio 1.3 (1.1-2.2); Alkaline Phosphatase 88 Units/L (34-104); Aspartate Amino Transferase 8 Units/L (13-39); BUN/Creatinine Ratio 28 (6-26); Bilirubin,Total 0.6 mg/dL (0.3-1.0); Blood Urea Nitrogen 21 mg/dL (8-23); Calcium 8.4 mg/dL (8.6-10.3); Carbon Dioxide 21 mEq/L (23-29); Chloride 108 mEq/L (98-107); Globulin 2.4 g/dL (2.4-3.5); Glucose 125 mg/dL (70-105); Magnesium 1.8 mg/dL (1.6-2.6); Osmolality,Calculated 292 (280-300); Phosphorous 2.3 mg/dL (2.7-4.5); Potassium 3.7 mEq/L (3.5-5.1); Sodium 139 mEq/L (136-145); Total Protein 5.5 g/dL (6.4-8.9); eGFR For African Americans > 60 (> 60); eGFR For Non-African Americans > 60 (> 60)
[2020-12-09 04:34] LABS: ABG Base Excess -1 mEq/L (-2 to 3); ABG HCO3 21 mEq/L (21-27); ABG Oxygen Saturation 97 % (95-98); ABG PCO2 27 mmHg (35-45); ABG PO2 79 mmHg (85-104); ABG TCO2 22 mEq/L (20-26); Blood Gas VT 550 cc
[2020-12-09] MEDS ORDERED: Vancomycin 1 EACH in 0.9 % Sodium Chloride 250 ML IVPB PRN (04:39)
[2020-12-09] MEDS: Midazolam HCl 50 MG/100 ML IV.SOLN IVC SCH (06:45)
[2020-12-09] MEDS: Pantoprazole 40 MG VIAL IVP SCH (07:44)
[2020-12-09] MEDS: Chlorhexidine Rinse 15 ML MOUTHWASH MM SCH (07:44)
[2020-12-09] MEDS ORDERED: *HR* Metoprolol 5 MG/5 ML VIAL IVP ONE ×3 (10:56→21:25)
[2020-12-09] MEDS ORDERED: Perflutren Lipid Microsphere 1.3 ML in 0.9 % Sodium Chloride 8.7 ML IVP PRN (11:12)
[2020-12-09 11:29] LABS: VBG Ionized Calcium 1.14 mmol/L (1.15-1.35)
[2020-12-09 11:43] LABS: BUN/Creatinine Ratio 28 (6-26); Blood Urea Nitrogen 19 mg/dL (8-23); Calcium 8.5 mg/dL (8.6-10.3); Carbon Dioxide 20 mEq/L (23-29); Chloride 109 mEq/L (98-107); Glucose 129 mg/dL (70-105); Magnesium 2.4 mg/dL (1.6-2.6); Osmolality,Calculated 292 (280-300); Phosphorous 3.8 mg/dL (2.7-4.5); Sodium 139 mEq/L (136-145); eGFR For African Americans > 60 (> 60); eGFR For Non-African Americans > 60 (> 60)
[2020-12-09 11:45] LABS: Troponin I 0.03 ng/mL (< 0.04)
[2020-12-09] MEDS: Calcium Gluconate 1gm/50mL 1 GM/50 ML BAG IVPB SCH ×2 (12:19→13:19)
[2020-12-09] MEDS: Norepinephrine 4 MG/254 ML IV.SOLN IVC SCH (16:22)
[2020-12-09 17:09] LABS: Hematocrit 30.5 % (37.5-50.1); Hemoglobin 9.2 g/dL (12.9-16.9)
[2020-12-09] MEDS: *HR* Metoprolol 5 MG/5 ML VIAL IVP PRN (21:30)
[2020-12-10] MEDS: Insulin LISPRO 300 UNITS/3 ML VIAL SUBQ SCH ×3 (00:06→16:57)
[2020-12-10] MEDS ORDERED: *HR* OxyCODONE Immed Rel 15 MG TABLET PO ONE (00:15)
[2020-12-10 04:06] LABS: Basophils # 0.1 K/mcL (0.0-0.2); Basophils % 0.5 %; Eosinophils # 0.1 K/mcL (0.0-0.6); Eosinophils % 0.8 %; Hemoglobin 8.8 g/dL (12.9-16.9); Immature Granulocytes % 0.4 % (0-4); Lymphocytes # 1.9 K/mcL (0.6-4.6); Lymphocytes % 18.1 %; Mean Corpuscular HGB Conc 30.3 g/dL (31.6-35.5); Mean Corpuscular Volume 82.4 fL (83.0-100.0); Mean Platelet Volume 8.7 fL (9.4-12.4); Monocytes # 0.8 K/mcL (0.0-1.3); Monocytes % 7.2 %; Neutrophils # 7.8 K/mcL (1.6-8.9); Platelet Count 293 K/mcL (140-400); Red Blood Count 3.52 M/mcL (4.19-5.50); Red Cell Distribution Width 14.7 % (11.5-14.5); White Blood Count 10.7 K/mcL (4.3-11.1)
[2020-12-10 04:06] LABS: VBG Ionized Calcium 1.24 mmol/L (1.15-1.35)
[2020-12-10 04:26] LABS: Alanine Aminotransferase 10 Units/L (7-52); Albumin 3.1 g/dL (3.5-5.7); Albumin/Globulin Ratio 1.2 (1.1-2.2); Alkaline Phosphatase 76 Units/L (34-104); Aspartate Amino Transferase 8 Units/L (13-39); BUN/Creatinine Ratio 24 (6-26); Bilirubin,Total 0.5 mg/dL (0.3-1.0); Blood Urea Nitrogen 14 mg/dL (8-23); Calcium 8.7 mg/dL (8.6-10.3); Carbon Dioxide 21 mEq/L (23-29); Chloride 107 mEq/L (98-107); Globulin 2.5 g/dL (2.4-3.5); Glucose 106 mg/dL (70-105); Magnesium 1.9 mg/dL (1.6-2.6); Osmolality,Calculated 285 (280-300); Phosphorous 2.7 mg/dL (2.7-4.5); Potassium 3.5 mEq/L (3.5-5.1); Sodium 137 mEq/L (136-145); Total Protein 5.6 g/dL (6.4-8.9); eGFR For African Americans > 60 (> 60); eGFR For Non-African Americans > 60 (> 60)
[2020-12-10] MEDS ORDERED: Vancomycin 1,250 MG/262.5 ML IV.SOLN IVPB SCH (05:00)
[2020-12-10] MEDS ORDERED: diazePAM 5 MG TABLET PO ONE (05:54)
[2020-12-10] MEDS ORDERED: *HR* Heparin 5,000 UNIT/ML VIAL SQ SCH (06:00)
[2020-12-10] MEDS: *HR* Metoprolol 5 MG/5 ML VIAL IVP PRN (06:27)
[2020-12-10] MEDS: Piperacillin/Tazobactam 3.375 GM in 0.9 % Sodium Chloride Mini Bag 100 ML IVPB SCH ×3 (07:54→23:39)
[2020-12-10] MEDS: Pantoprazole 40 MG VIAL IVP SCH (08:08)
[2020-12-10] MEDS ORDERED: SUMAtriptan succinate 25 MG TABLET PO PRN ×2 (08:34→09:20)
[2020-12-10] MEDS ORDERED: diazePAM 5 MG TABLET PO PRN ×2 (08:34→09:20)
[2020-12-10] MEDS ORDERED: Metoprolol XL (24 HR) Succ 25 MG TAB.ER.24H PO SCH (09:00)
[2020-12-10] MEDS ORDERED: Metoprolol XL (24 HR) Succ 25 MG TAB.ER.24H PO ONE ×2 (09:00→09:20)
[2020-12-10] MEDS ORDERED: *HR* Pioglitazone 15 MG TABLET PO SCH (09:00)
[2020-12-10] MEDS ORDERED: Famotidine 20 MG TABLET PO SCH (09:00)
[2020-12-10] MEDS ORDERED: hydrOXYzine pamoate 25 MG CAPSULE PO PRN ×2 (09:10→09:20)
[2020-12-10] MEDS ORDERED: Morphine Sulfate ER (12 HR) 60 MG TABLET.ER PO SCH ×2 (09:15→14:45)
[2020-12-10] MEDS ORDERED: Morphine Sulfate ER (12 HR) 15 MG TABLET.ER PO SCH ×2 (09:15→14:45)
[2020-12-10] MEDS ORDERED: Baclofen 10 MG TABLET PO SCH (09:15)
[2020-12-10] MEDS ORDERED: Norepinephrine 4 MG/254 ML IV.SOLN IVC SCH (09:20)
[2020-12-10] MEDS ORDERED: D5% in Water 1,000 ML IVC PRN (09:20)
[2020-12-10] MEDS ORDERED: *HR* Dextrose 50 % in Water (Vial) 50 ML VIAL IVP PRN (09:20)
[2020-12-10] MEDS ORDERED: Naloxone 0.4 MG/ML INJ IVP PRN (09:20)
[2020-12-10] MEDS ORDERED: Dextrose Gel 15 GM/37.5 ML TUBE PO PRN ×2 (09:20)
[2020-12-10] MEDS ORDERED: Acetaminophen 325 MG TABLET PO PRN (09:20)
[2020-12-10] MEDS: Morphine Sulfate ER (12 HR) 15 MG TABLET.ER PO SCH ×3 (09:58→22:14)
[2020-12-10] MEDS: Morphine Sulfate ER (12 HR) 60 MG TABLET.ER PO SCH ×3 (09:58→22:14)
[2020-12-10] MEDS ORDERED: Insulin LISPRO 300 UNITS/3 ML VIAL SUBQ SCH ×2 (12:00→21:00)
[2020-12-10] MEDS: Baclofen 10 MG TABLET PO SCH ×3 (12:34→20:45)
[2020-12-10] MEDS ORDERED: *HR* Metoprolol 5 MG/5 ML VIAL IVP ONE ×4 (13:07→18:34)
[2020-12-10] MEDS: *HR* Heparin 5,000 UNIT/ML VIAL SQ SCH (18:36)
[2020-12-10] MEDS: Metoprolol XL (24 HR) Succ 25 MG TAB.ER.24H PO SCH (19:37)
[2020-12-11] MEDS: Morphine Sulfate ER (12 HR) 60 MG TABLET.ER PO SCH ×3 (03:47→15:08)
[2020-12-11] MEDS: Morphine Sulfate ER (12 HR) 15 MG TABLET.ER PO SCH ×3 (03:47→15:08)
[2020-12-11 04:18] LABS: Basophils # 0.1 K/mcL (0.0-0.2); Basophils % 0.7 %; Eosinophils # 0.2 K/mcL (0.0-0.6); Eosinophils % 2.4 %; Hematocrit 29.2 % (37.5-50.1); Hemoglobin 8.8 g/dL (12.9-16.9); Immature Granulocytes % 0.4 % (0-4); Lymphocytes # 1.6 K/mcL (0.6-4.6); Lymphocytes % 23.6 %; Mean Corpuscular HGB Conc 30.1 g/dL (31.6-35.5); Mean Corpuscular Hemoglobin 24.8 pg (28.0-33.3); Mean Corpuscular Volume 82.3 fL (83.0-100.0); Mean Platelet Volume 8.8 fL (9.4-12.4); Monocytes # 0.6 K/mcL (0.0-1.3); Monocytes % 8.8 %; Neutrophils # 4.5 K/mcL (1.6-8.9); Platelet Count 295 K/mcL (140-400); Red Blood Count 3.55 M/mcL (4.19-5.50); Red Cell Distribution Width 14.7 % (11.5-14.5); Segmented Neutrophils % 64.1 %
[2020-12-11 04:22] LABS: VBG Ionized Calcium 1.26 mmol/L (1.15-1.35)
[2020-12-11 04:30] LABS: Alanine Aminotransferase 10 Units/L (7-52); Albumin 3.1 g/dL (3.5-5.7); Albumin/Globulin Ratio 1.2 (1.1-2.2); Alkaline Phosphatase 71 Units/L (34-104); Aspartate Amino Transferase 7 Units/L (13-39); BUN/Creatinine Ratio 13 (6-26); Bilirubin,Total 0.4 mg/dL (0.3-1.0); Blood Urea Nitrogen 8 mg/dL (8-23); Calcium 8.5 mg/dL (8.6-10.3); Carbon Dioxide 26 mEq/L (23-29); Chloride 108 mEq/L (98-107); Glucose 137 mg/dL (70-105); Magnesium 1.8 mg/dL (1.6-2.6); Osmolality,Calculated 288 (280-300); Phosphorous 3.3 mg/dL (2.7-4.5); Potassium 3.5 mEq/L (3.5-5.1); Sodium 139 mEq/L (136-145); Total Protein 5.7 g/dL (6.4-8.9); eGFR For African Americans > 60 (> 60); eGFR For Non-African Americans > 60 (> 60)
[2020-12-11 04:31] LABS: Globulin 2.6 g/dL (2.4-3.5)
[2020-12-11] MEDS: *HR* Heparin 5,000 UNIT/ML VIAL SQ SCH (06:22)
[2020-12-11] MEDS: Insulin LISPRO 300 UNITS/3 ML VIAL SUBQ SCH ×2 (07:33→12:17)
[2020-12-11] MEDS: Piperacillin/Tazobactam 3.375 GM in 0.9 % Sodium Chloride Mini Bag 100 ML IVPB SCH ×2 (07:38→15:08)
[2020-12-11] MEDS ORDERED: Famotidine 20 MG TABLET PO SCH (09:00)
[2020-12-11] MEDS ORDERED: *HR* Pioglitazone 15 MG TABLET PO SCH (09:00)
[2020-12-11] MEDS ORDERED: Metoprolol XL (24 HR) Succ 25 MG TAB.ER.24H PO SCH ×2 (09:00)
[2020-12-11] MEDS: Metoprolol XL (24 HR) Succ 25 MG TAB.ER.24H PO SCH (09:09)
[2020-12-11 15:08] VITALS: BP 126/75
== END 2020-12-11 17:31 | disposition home or self-care (01) | DRG 871 ==
LOC: EMEROOARM 10:11 → ICNU 14:17
PROVIDERS: ADMIT Pediatrics; ATTEND Pediatrics

== ENCOUNTER 2021-04-16 13:22 | Inpatient (IN) ==
[2021-04-16] MEDS ORDERED: Ondansetron ODT 4 MG TAB.RAPDIS SL PRN (13:29)
[2021-04-16] MEDS ORDERED: Naloxone 0.4 MG/ML INJ IVP PRN (13:29)
[2021-04-16] MEDS ORDERED: SUMAtriptan succinate 25 MG TABLET PO PRN (13:34)
[2021-04-16] MEDS ORDERED: diazePAM 5 MG TABLET PO PRN (13:34)
[2021-04-16] MEDS ORDERED: *HR* OxyCODONE Immed Rel 15 MG TABLET PO PRN (13:34)
[2021-04-16] MEDS ORDERED: hydrOXYzine pamoate 25 MG CAPSULE PO PRN (13:34)
[2021-04-16 14:32] LABS: White Blood Count 11.5 K/mcL (4.3-11.1)
[2021-04-16 14:33] LABS: Basophils % 0.3 %; Eosinophils # 0.1 K/mcL (0.0-0.6); Eosinophils % 0.5 %; Hematocrit 37.2 % (37.5-50.1); Hemoglobin 11.5 g/dL (12.9-16.9); Immature Granulocytes % 0.4 % (0-4); Lymphocytes # 2.5 K/mcL (0.6-4.6); Lymphocytes % 21.2 %; Mean Corpuscular HGB Conc 30.9 g/dL (31.6-35.5); Mean Corpuscular Hemoglobin 25.9 pg (28.0-33.3); Mean Corpuscular Volume 83.8 fL (83.0-100.0); Mean Platelet Volume 8.7 fL (9.4-12.4); Monocytes % 8.4 %; Platelet Count 345 K/mcL (140-400); Red Blood Count 4.44 M/mcL (4.19-5.50); Red Cell Distribution Width 15.5 % (11.5-14.5); Segmented Neutrophils % 69.2 %
[2021-04-16 14:41] LABS: Prothrombin Time 11.2 Seconds (9.4-12.1)
[2021-04-16 15:54] LABS: BUN/Creatinine Ratio 25 (6-26); Blood Urea Nitrogen 15 mg/dL (8-23); Calcium 9.8 mg/dL (8.6-10.3); Carbon Dioxide 27 mEq/L (23-29); Chloride 97 mEq/L (98-107); Glucose 125 mg/dL (70-105); Magnesium 2.1 mg/dL (1.6-2.6); Osmolality,Calculated 282 (280-300); Phosphorous 3.8 mg/dL (2.7-4.5); Potassium 4.2 mEq/L (3.5-5.1); Sodium 135 mEq/L (136-145); eGFR For African Americans > 60 (> 60); eGFR For Non-African Americans > 60 (> 60)
[2021-04-16] MEDS ORDERED: Metoprolol XL (24 HR) Succ 25 MG TAB.ER.24H PO SCH (18:00)
[2021-04-16] MEDS: Morphine Sulfate ER (12 HR) 15 MG TABLET.ER PO SCH (18:10)
[2021-04-16] MEDS: Morphine Sulfate ER (12 HR) 60 MG TABLET.ER PO SCH (18:10)
[2021-04-16] MEDS: Baclofen 10 MG TABLET PO SCH (19:55)
[2021-04-16 21:22] LABS: Basophils % 0.3 %; Eosinophils % 0.2 %; Hematocrit 35.4 % (37.5-50.1); Hemoglobin 11.1 g/dL (12.9-16.9); Immature Granulocytes % 0.2 % (0-4); Lymphocytes # 2.2 K/mcL (0.6-4.6); Lymphocytes % 18.4 %; Mean Corpuscular HGB Conc 31.4 g/dL (31.6-35.5); Mean Corpuscular Hemoglobin 26.3 pg (28.0-33.3); Mean Corpuscular Volume 83.9 fL (83.0-100.0); Mean Platelet Volume 8.4 fL (9.4-12.4); Monocytes # 0.9 K/mcL (0.0-1.3); Monocytes % 7.6 %; Neutrophils # 8.9 K/mcL (1.6-8.9); Platelet Count 295 K/mcL (140-400); Red Blood Count 4.22 M/mcL (4.19-5.50); Red Cell Distribution Width 15.5 % (11.5-14.5); Segmented Neutrophils % 73.3 %; White Blood Count 12.1 K/mcL (4.3-11.1)
[2021-04-17] MEDS ORDERED: 0.9 % Sodium Chloride w KCl 20 MEQ/1,000 ML MLS IVC SCH (00:01)
[2021-04-17] MEDS: Morphine Sulfate ER (12 HR) 60 MG TABLET.ER PO SCH ×4 (00:05→14:28)
[2021-04-17] MEDS: Morphine Sulfate ER (12 HR) 15 MG TABLET.ER PO SCH ×4 (00:05→14:28)
[2021-04-17] MEDS ORDERED: *HR* Enoxaparin 40 MG/0.4 ML SYRINGE SQ SCH (06:00)
[2021-04-17 06:58] LABS: BUN/Creatinine Ratio 19 (6-26); Blood Urea Nitrogen 10 mg/dL (8-23); Calcium 9.6 mg/dL (8.6-10.3); Carbon Dioxide 32 mEq/L (23-29); Chloride 101 mEq/L (98-107); Glucose 106 mg/dL (70-105); Magnesium 2.2 mg/dL (1.6-2.6); Osmolality,Calculated 287 (280-300); Phosphorous 3.8 mg/dL (2.7-4.5); Potassium 3.9 mEq/L (3.5-5.1); Sodium 139 mEq/L (136-145); eGFR For African Americans > 60 (> 60); eGFR For Non-African Americans > 60 (> 60)
[2021-04-17] MEDS ORDERED: *HR* Propofol 200 MG/20 ML VIAL IVP ONE ×2 (06:58→07:07)
[2021-04-17] MEDS ORDERED: *HR* FentaNYL (PF) 100 MCG/2 ML VIAL ONE ×2 (06:58→09:00)
[2021-04-17] MEDS ORDERED: *HR* Midazolam HCl 2 MG/2 ML VIAL ONE (06:58)
[2021-04-17] MEDS ORDERED: *HR* Rocuronium Bromide 50 MG/5 ML VIAL ONE ×2 (06:59→09:02)
[2021-04-17] MEDS ORDERED: Lidocaine HCL 4 ML Topical Solution (Laryng-O-Jet Kit Sterile Pak) TP ONE (06:59)
[2021-04-17] MEDS ORDERED: *HR* Succinylcholine 200 MG/10 ML VIAL IVP ONE ×2 (06:59→07:01)
[2021-04-17] MEDS ORDERED: Ondansetron 4 MG/2 ML VIAL ONE (06:59)
[2021-04-17] MEDS ORDERED: Lidocaine -MPF 2% 5 ML VIAL ONE (06:59)
[2021-04-17] MEDS ORDERED: Dexmedetomidine HCl 400 MCG/100 ML MLS IVC ONE (07:38)
[2021-04-17] MEDS ORDERED: *HR* HYDROmorphone PF 0.5 MG/0.5 ML SYRINGE IVP PRN (07:58)
[2021-04-17] MEDS ORDERED: *HR* Metoprolol 5 MG/5 ML VIAL IVP PRN (07:58)
[2021-04-17] MEDS ORDERED: Ondansetron 4 MG/2 ML VIAL IVP PRN (07:58)
[2021-04-17] MEDS ORDERED: Albuterol 2.5 MG/3 ML NEBULIZER IH PRN ×2 (07:58→10:50)
[2021-04-17] MEDS ORDERED: Acetaminophen IV 1,000 MG/100 ML BAG IVPB ONE (07:58)
[2021-04-17] MEDS ORDERED: *HR* OxyCODONE Immed Rel 5 MG TABLET PO PRN (07:58)
[2021-04-17] MEDS ORDERED: MetroNIDAZOLE 500 MG/100 ML 500 MG/100 ML BAG IVPB ONE ×2 (08:08→08:15)
[2021-04-17] MEDS ORDERED: ceFAZolin 2,000 MG in Water for inj. (sterile) 20 ML IVP ONE (08:15)
[2021-04-17] MEDS ORDERED: EPHEDrine 50 MG/ML VIAL ONE (08:53)
[2021-04-17] MEDS ORDERED: Metoprolol XL (24 HR) Succ 25 MG TAB.ER.24H PO SCH (09:00)
[2021-04-17] MEDS ORDERED: Famotidine 20 MG TABLET PO SCH (09:00)
[2021-04-17] MEDS: Baclofen 10 MG TABLET PO SCH ×2 (09:00→19:52)
[2021-04-17] MEDS ORDERED: lisinopriL 20 MG TABLET PO SCH (09:00)
[2021-04-17] MEDS ORDERED: CeFAZolin Syr 2,000MG/20 ML 2,000 MG/20 ML SYRINGE IVPB ONE (09:45)
[2021-04-17] MEDS ORDERED: Sugammadex Sodium 200 MG/2 ML VIAL IV ONE (09:58)
[2021-04-17] MEDS ORDERED: *HR* HYDROMORPHONE 2 MG/ML VIAL ONE (09:58)
[2021-04-17] MEDS ORDERED: hydrOXYzine pamoate 25 MG CAPSULE PO PRN (10:50)
[2021-04-17] MEDS ORDERED: diazePAM 5 MG TABLET PO PRN (10:50)
[2021-04-17] MEDS ORDERED: Naloxone 0.4 MG/ML INJ IVP PRN (10:50)
[2021-04-17] MEDS ORDERED: SUMAtriptan succinate 25 MG TABLET PO PRN (10:50)
[2021-04-17] MEDS: 0.9 % Sodium Chloride w KCl 20 MEQ/1,000 ML MLS IVC SCH (11:46)
[2021-04-17] MEDS: (Diclofenac Sodium [Voltaren] 100 GM Gel..Gram.) TP SCH ×3 (11:58→20:09)
[2021-04-17] MEDS: *HR* OxyCODONE Immed Rel 15 MG TABLET PO PRN ×2 (12:02→19:52)
[2021-04-17] MEDS: Metoprolol XL (24 HR) Succ 25 MG TAB.ER.24H PO SCH (18:13)
[2021-04-18] MEDS: Morphine Sulfate ER (12 HR) 15 MG TABLET.ER PO SCH ×4 (00:16→20:29)
[2021-04-18] MEDS: 0.9 % Sodium Chloride w KCl 20 MEQ/1,000 ML MLS IVC SCH (00:16)
[2021-04-18] MEDS: Morphine Sulfate ER (12 HR) 60 MG TABLET.ER PO SCH ×4 (00:16→20:29)
[2021-04-18] MEDS: *HR* Enoxaparin 40 MG/0.4 ML SYRINGE SQ SCH (05:38)
[2021-04-18] MEDS: *HR* OxyCODONE Immed Rel 15 MG TABLET PO PRN ×2 (08:46→22:33)
[2021-04-18] MEDS: Baclofen 10 MG TABLET PO SCH ×2 (08:49→20:28)
[2021-04-18] MEDS: lisinopriL 20 MG TABLET PO SCH (08:49)
[2021-04-18] MEDS: Cholecalciferol (D-3) 1,000 UNIT (25MCG) TABLET PO SCH (08:50)
[2021-04-18] MEDS: Famotidine 20 MG TABLET PO SCH (08:51)
[2021-04-18] MEDS: Metoprolol XL (24 HR) Succ 25 MG TAB.ER.24H PO SCH ×2 (08:52→19:37)
[2021-04-18] MEDS: (Diclofenac Sodium [Voltaren] 100 GM Gel..Gram.) TP SCH ×4 (08:52→20:26)
[2021-04-19] MEDS: Morphine Sulfate ER (12 HR) 60 MG TABLET.ER PO SCH ×5 (02:52→23:19)
[2021-04-19] MEDS: Morphine Sulfate ER (12 HR) 15 MG TABLET.ER PO SCH ×5 (02:57→23:19)
[2021-04-19] MEDS: *HR* Enoxaparin 40 MG/0.4 ML SYRINGE SQ SCH (05:17)
[2021-04-19] MEDS: Ondansetron ODT 4 MG TAB.RAPDIS SL PRN ×2 (06:00→13:17)
[2021-04-19] MEDS ORDERED: Simethicone 80 MG TAB.CHEW PO ONE (06:13)
[2021-04-19] MEDS: Baclofen 10 MG TABLET PO SCH (09:51)
[2021-04-19] MEDS: lisinopriL 20 MG TABLET PO SCH (09:52)
[2021-04-19] MEDS: Cholecalciferol (D-3) 1,000 UNIT (25MCG) TABLET PO SCH (09:52)
[2021-04-19] MEDS: Famotidine 20 MG TABLET PO SCH (09:52)
[2021-04-19] MEDS: Metoprolol XL (24 HR) Succ 25 MG TAB.ER.24H PO SCH ×2 (09:53→16:57)
[2021-04-19] MEDS: (Diclofenac Sodium [Voltaren] 100 GM Gel..Gram.) TP SCH ×4 (10:05→19:37)
[2021-04-19] MEDS ORDERED: D5% in 0.45% NACL w KCl 20 MEQ/1,000 ML MLS IVC SCH ×2 (16:30→23:55)
[2021-04-19 19:18] LABS: Hematocrit 34.4 % (37.5-50.1); Hemoglobin 10.3 g/dL (12.9-16.9); Mean Corpuscular HGB Conc 29.9 g/dL (31.6-35.5); Mean Corpuscular Hemoglobin 25.5 pg (28.0-33.3); Mean Corpuscular Volume 85.1 fL (83.0-100.0); Platelet Count 294 K/mcL (140-400); Red Blood Count 4.04 M/mcL (4.19-5.50); Red Cell Distribution Width 15.7 % (11.5-14.5); White Blood Count 12.6 K/mcL (4.3-11.1)
[2021-04-19 19:19] LABS: Prothrombin Time 11.4 Seconds (9.4-12.1)
[2021-04-19 19:21] LABS: Activated Partial Thrombo Time 28.4 Seconds (26.0-36.0)
[2021-04-19 19:29] LABS: BUN/Creatinine Ratio 19 (6-26); Blood Urea Nitrogen 8 mg/dL (8-23); Calcium 8.7 mg/dL (8.6-10.3); Carbon Dioxide 31 mEq/L (23-29); Chloride 102 mEq/L (98-107); Glucose 154 mg/dL (70-105); Osmolality,Calculated 283 (280-300); Potassium 4.3 mEq/L (3.5-5.1); Sodium 136 mEq/L (136-145); eGFR For African Americans > 60 (> 60); eGFR For Non-African Americans > 60 (> 60)
[2021-04-19] MEDS ORDERED: *HR* Propofol 200 MG/20 ML VIAL IVP ONE (20:48)
[2021-04-19] MEDS ORDERED: *HR* FentaNYL (PF) 100 MCG/2 ML VIAL ONE (20:48)
[2021-04-19] MEDS ORDERED: Lidocaine HCL 4 ML Topical Solution (Laryng-O-Jet Kit Sterile Pak) TP ONE (20:48)
[2021-04-19] MEDS ORDERED: Lidocaine -MPF 2% 5 ML VIAL ONE (20:48)
[2021-04-19] MEDS ORDERED: *HR* Rocuronium Bromide 50 MG/5 ML VIAL ONE (20:48)
[2021-04-19] MEDS ORDERED: cefOXitin 2,000 MG in Water for inj. (sterile) 20 ML IVP ONE (21:21)
[2021-04-19] MEDS ORDERED: EPHEDrine 50 MG/ML VIAL ONE (21:47)
[2021-04-19] MEDS ORDERED: CefOXitin 2,000 MG VIAL ONE (21:49)
[2021-04-19] MEDS ORDERED: Ondansetron 4 MG/2 ML VIAL ONE (21:51)
[2021-04-19] MEDS ORDERED: Sugammadex Sodium 200 MG/2 ML VIAL IV ONE (22:08)
[2021-04-19] MEDS ORDERED: Acetaminophen IV 1,000 MG/100 ML BAG IVPB ONE (22:18)
[2021-04-19] MEDS ORDERED: *HR* HYDROmorphone PF 0.5 MG/0.5 ML SYRINGE IVP PRN (22:44)
[2021-04-19] MEDS ORDERED: Ondansetron 4 MG/2 ML VIAL IVP PRN (22:44)
[2021-04-19] MEDS ORDERED: *HR* HYDROmorphone (PF) 1 MG/ML SYRINGE ONE (22:47)
[2021-04-19] MEDS ORDERED: diazePAM 5 MG TABLET PO PRN (23:55)
[2021-04-19] MEDS ORDERED: Ondansetron ODT 4 MG TAB.RAPDIS SL PRN (23:55)
[2021-04-19] MEDS ORDERED: hydrOXYzine pamoate 25 MG CAPSULE PO PRN (23:55)
[2021-04-19] MEDS ORDERED: SUMAtriptan succinate 25 MG TABLET PO PRN (23:55)
[2021-04-19] MEDS ORDERED: Naloxone 0.4 MG/ML INJ IVP PRN (23:55)
[2021-04-20] MEDS: Baclofen 10 MG TABLET PO SCH ×3 (01:05→21:23)
[2021-04-20] MEDS: Morphine Sulfate ER (12 HR) 15 MG TABLET.ER PO SCH ×4 (01:26→21:24)
[2021-04-20] MEDS: Morphine Sulfate ER (12 HR) 60 MG TABLET.ER PO SCH ×4 (01:26→21:24)
[2021-04-20] MEDS: *HR* Enoxaparin 40 MG/0.4 ML SYRINGE SQ SCH (05:34)
[2021-04-20] MEDS: *HR* OxyCODONE Immed Rel 15 MG TABLET PO PRN ×2 (05:45→13:31)
[2021-04-20] MEDS: lisinopriL 20 MG TABLET PO SCH (08:38)
[2021-04-20] MEDS: Famotidine 20 MG TABLET PO SCH (08:38)
[2021-04-20] MEDS: Metoprolol XL (24 HR) Succ 25 MG TAB.ER.24H PO SCH ×2 (08:38→17:41)
[2021-04-20] MEDS: Cholecalciferol (D-3) 1,000 UNIT (25MCG) TABLET PO SCH (08:38)
[2021-04-20] MEDS: (Diclofenac Sodium [Voltaren] 100 GM Gel..Gram.) TP SCH ×4 (10:53→20:27)
[2021-04-21] MEDS: *HR* Enoxaparin 40 MG/0.4 ML SYRINGE SQ SCH (05:25)
[2021-04-21] MEDS: Morphine Sulfate ER (12 HR) 60 MG TABLET.ER PO SCH ×4 (05:39→21:17)
[2021-04-21] MEDS: Morphine Sulfate ER (12 HR) 15 MG TABLET.ER PO SCH ×4 (05:39→21:17)
[2021-04-21] MEDS: lisinopriL 20 MG TABLET PO SCH (10:10)
[2021-04-21] MEDS: Famotidine 20 MG TABLET PO SCH (10:10)
[2021-04-21] MEDS: Baclofen 10 MG TABLET PO SCH ×2 (10:11→21:17)
[2021-04-21] MEDS: Metoprolol XL (24 HR) Succ 25 MG TAB.ER.24H PO SCH ×2 (10:11→16:25)
[2021-04-21] MEDS: Cholecalciferol (D-3) 1,000 UNIT (25MCG) TABLET PO SCH (10:11)
[2021-04-21] MEDS: (Diclofenac Sodium [Voltaren] 100 GM Gel..Gram.) TP SCH ×4 (10:57→21:18)
[2021-04-21 11:08] LABS: Basophils % 0.3 %; Eosinophils # 0.2 K/mcL (0.0-0.6); Eosinophils % 2.1 %; Hematocrit 31.5 % (37.5-50.1); Hemoglobin 9.5 g/dL (12.9-16.9); Immature Granulocytes % 0.3 % (0-4); Mean Corpuscular HGB Conc 30.2 g/dL (31.6-35.5); Mean Corpuscular Hemoglobin 25.6 pg (28.0-33.3); Mean Corpuscular Volume 84.9 fL (83.0-100.0); Mean Platelet Volume 8.7 fL (9.4-12.4); Monocytes # 0.9 K/mcL (0.0-1.3); Monocytes % 10.7 %; Neutrophils # 5.5 K/mcL (1.6-8.9); Platelet Count 264 K/mcL (140-400); Red Blood Count 3.71 M/mcL (4.19-5.50); Red Cell Distribution Width 15.5 % (11.5-14.5); Segmented Neutrophils % 63.6 %; White Blood Count 8.6 K/mcL (4.3-11.1)
[2021-04-21 11:34] LABS: BUN/Creatinine Ratio 14 (6-26); Blood Urea Nitrogen 6 mg/dL (8-23); Calcium 8.8 mg/dL (8.6-10.3); Carbon Dioxide 36 mEq/L (23-29); Chloride 102 mEq/L (98-107); Glucose 121 mg/dL (70-105); Magnesium 1.8 mg/dL (1.6-2.6); Osmolality,Calculated 289 (280-300); Phosphorous 4.1 mg/dL (2.7-4.5); Potassium 4.1 mEq/L (3.5-5.1); Sodium 140 mEq/L (136-145); eGFR For African Americans > 60 (> 60); eGFR For Non-African Americans > 60 (> 60)
[2021-04-21] MEDS: *HR* OxyCODONE Immed Rel 15 MG TABLET PO PRN (14:22)
[2021-04-22] MEDS: Morphine Sulfate ER (12 HR) 60 MG TABLET.ER PO SCH ×2 (03:39→09:51)
[2021-04-22] MEDS: Morphine Sulfate ER (12 HR) 15 MG TABLET.ER PO SCH ×2 (03:40→09:50)
[2021-04-22] MEDS: *HR* Enoxaparin 40 MG/0.4 ML SYRINGE SQ SCH (06:35)
[2021-04-22] MEDS: Cholecalciferol (D-3) 1,000 UNIT (25MCG) TABLET PO SCH (09:49)
[2021-04-22] MEDS: Famotidine 20 MG TABLET PO SCH (09:49)
[2021-04-22] MEDS: Baclofen 10 MG TABLET PO SCH (09:50)
[2021-04-22] MEDS: lisinopriL 20 MG TABLET PO SCH (09:50)
[2021-04-22] MEDS: Metoprolol XL (24 HR) Succ 25 MG TAB.ER.24H PO SCH (09:51)
[2021-04-22] MEDS: (Diclofenac Sodium [Voltaren] 100 GM Gel..Gram.) TP SCH ×2 (10:29→13:03)
[2021-04-22] MEDS: *HR* OxyCODONE Immed Rel 15 MG TABLET PO PRN (11:14)
[2021-04-22 11:16] VITALS: BP 116/70; PULSE 69; TEMP 97.7; O2SAT 97
== END 2021-04-22 16:53 | disposition home or self-care (01) | DRG 982 ==
LOC: 3BNU 14:14 → EDSTATUS 04-17 07:45
PROVIDERS: ADMIT Surgery; ATTEND Surgery

== ENCOUNTER 2021-12-30 13:41 | Observation (INO) ==
[2021-12-30] MEDS ORDERED: *HR* HYDROcodone/Acet 5/325 mg TABLET PO PRN (16:06)
[2021-12-30] MEDS ORDERED: Acetaminophen 325 MG TABLET PO PRN (16:06)
[2021-12-30] MEDS ORDERED: *HR* OxyCODONE Immed Rel 5 MG TABLET PO PRN (16:06)
[2021-12-30] MEDS ORDERED: Naloxone 0.4 MG/ML INJ IVP PRN (16:06)
[2021-12-30] MEDS ORDERED: Ondansetron 4 MG/2 ML VIAL IVP PRN (16:06)
[2021-12-30 18:16] LABS: Basophils # 0.1 K/mcL (0.0-0.2); Basophils % 0.5 %; Eosinophils # 0.2 K/mcL (0.0-0.6); Eosinophils % 2.1 %; Hematocrit 39.6 % (37.5-50.1); Hemoglobin 12.1 g/dL (12.9-16.9); Immature Granulocytes % 0.3 % (0-4); Lymphocytes # 2.1 K/mcL (0.6-4.6); Lymphocytes % 19.7 %; Mean Corpuscular HGB Conc 30.6 g/dL (31.6-35.5); Mean Corpuscular Hemoglobin 25.6 pg (28.0-33.3); Mean Corpuscular Volume 83.9 fL (83.0-100.0); Mean Platelet Volume 8.7 fL (9.4-12.4); Monocytes # 0.8 K/mcL (0.0-1.3); Neutrophils # 7.6 K/mcL (1.6-8.9); Platelet Count 293 K/mcL (140-400); Red Blood Count 4.72 M/mcL (4.19-5.50); Red Cell Distribution Width 14.6 % (11.5-14.5); Segmented Neutrophils % 70.4 %; White Blood Count 10.8 K/mcL (4.3-11.1)
[2021-12-30 18:26] LABS: Prothrombin Time 11.4 Seconds (9.4-12.1)
[2021-12-30 18:37] LABS: BUN/Creatinine Ratio 17 (6-26); Blood Urea Nitrogen 10 mg/dL (8-23); Calcium 9.6 mg/dL (8.6-10.3); Carbon Dioxide 32 mEq/L (23-29); Chloride 99 mEq/L (98-107); Glucose 115 mg/dL (70-105); Magnesium 1.8 mg/dL (1.6-2.6); Osmolality,Calculated 288 (280-300); Potassium 4.2 mEq/L (3.5-5.1); Sodium 139 mEq/L (136-145); eGFR For African Americans > 60 (> 60); eGFR For Non-African Americans > 60 (> 60)
[2021-12-30] MEDS ORDERED: diazePAM 10 MG TABLET PO PRN (22:18)
[2021-12-30] MEDS: Morphine Sulfate ER (12 HR) 15 MG TABLET.ER PO SCH (23:05)
[2021-12-30] MEDS: Morphine Sulfate ER (12 HR) 30 MG TABLET.ER PO SCH (23:05)
[2021-12-30] MEDS: *HR* Heparin 5,000 UNIT/ML VIAL SQ SCH (23:10)
[2021-12-31] MEDS ORDERED: *HR* OxyCODONE Immed Rel 15 MG TABLET PO PRN (01:30)
[2021-12-31] MEDS: Baclofen 10 MG TABLET PO SCH ×3 (05:36→22:30)
[2021-12-31] MEDS: Morphine Sulfate ER (12 HR) 30 MG TABLET.ER PO SCH ×4 (05:44→22:26)
[2021-12-31] MEDS: Morphine Sulfate ER (12 HR) 15 MG TABLET.ER PO SCH ×4 (05:44→22:25)
[2021-12-31] MEDS: *HR* Heparin 5,000 UNIT/ML VIAL SQ SCH ×3 (05:44→22:31)
[2021-12-31] MEDS ORDERED: *HR* Metoprolol 5 MG/5 ML VIAL IVP ONE (06:02)
[2021-12-31] MEDS ORDERED: hydrOXYzine pamoate 25 MG CAPSULE PO PRN (06:40)
[2021-12-31] MEDS ORDERED: SUMAtriptan succinate 25 MG TABLET PO PRN (06:40)
[2021-12-31] MEDS ORDERED: Lidocaine 5% OINT 35 APPL/35.44 GM TUBE TP PRN (06:40)
[2021-12-31] MEDS ORDERED: OXYCODONE HCL 30 MG PO SCH (06:45)
[2021-12-31] MEDS: Metoprolol XL (24 HR) Succ 25 MG TAB.ER.24H PO SCH ×2 (06:49→22:25)
[2021-12-31 06:55] LABS: Basophils # 0.1 K/mcL (0.0-0.2); Basophils % 0.6 %; Eosinophils # 0.3 K/mcL (0.0-0.6); Eosinophils % 3.1 %; Hematocrit 39.3 % (37.5-50.1); Hemoglobin 11.9 g/dL (12.9-16.9); Immature Granulocytes % 0.3 % (0-4); Lymphocytes # 3.1 K/mcL (0.6-4.6); Lymphocytes % 28.1 %; Mean Corpuscular HGB Conc 30.3 g/dL (31.6-35.5); Mean Corpuscular Hemoglobin 25.6 pg (28.0-33.3); Mean Corpuscular Volume 84.7 fL (83.0-100.0); Monocytes # 1.1 K/mcL (0.0-1.3); Monocytes % 9.7 %; Neutrophils # 6.4 K/mcL (1.6-8.9); Platelet Count 297 K/mcL (140-400); Red Blood Count 4.64 M/mcL (4.19-5.50); Red Cell Distribution Width 14.9 % (11.5-14.5); Segmented Neutrophils % 58.2 %
[2021-12-31 07:11] LABS: Alanine Aminotransferase 13 Units/L (7-52); Albumin 3.8 g/dL (3.5-5.7); Albumin/Globulin Ratio 1.3 (1.1-2.2); Alkaline Phosphatase 105 Units/L (34-104); Aspartate Amino Transferase 13 Units/L (13-39); BUN/Creatinine Ratio 16 (6-26); Bilirubin,Total 0.4 mg/dL (0.3-1.0); Blood Urea Nitrogen 12 mg/dL (8-23); Calcium 9.4 mg/dL (8.6-10.3); Carbon Dioxide 32 mEq/L (23-29); Chloride 99 mEq/L (98-107); Glucose 131 mg/dL (70-105); Osmolality,Calculated 288 (280-300); Potassium 3.9 mEq/L (3.5-5.1); Sodium 138 mEq/L (136-145); Total Protein 6.8 g/dL (6.4-8.9); eGFR For African Americans > 60 (> 60); eGFR For Non-African Americans > 60 (> 60)
[2021-12-31 08:03] LABS: Magnesium 1.9 mg/dL (1.6-2.6); Phosphorous 3.6 mg/dL (2.7-4.5); Thyroid Stimulating Hormone 0.995 mcIU/mL (0.340-5.600); Troponin I < 0.03 ng/mL (< 0.04)
[2021-12-31] MEDS ORDERED: Metoprolol XL (24 HR) Succ 25 MG TAB.ER.24H PO SCH (09:00)
[2021-12-31] MEDS: Cholecalciferol (D-3) 1,000 UNIT (25MCG) TABLET PO SCH (10:03)
[2021-12-31] MEDS: lisinopriL 20 MG TABLET PO SCH (10:03)
[2021-12-31] MEDS: Famotidine 20 MG TABLET PO SCH (10:03)
[2021-12-31] MEDS ORDERED: *HR* Metoprolol 5 MG/5 ML VIAL IVP PRN (13:34)
[2021-12-31] MEDS ORDERED: 0.9 % Sodium Chloride 250 ML IV ONE (14:57)
[2021-12-31] MEDS ORDERED: 0.9 % Sodium Chloride 500 ML IVC SCH ×2 (17:15→18:00)
[2022-01-01] MEDS: Morphine Sulfate ER (12 HR) 30 MG TABLET.ER PO SCH ×2 (04:26→10:29)
[2022-01-01] MEDS: Morphine Sulfate ER (12 HR) 15 MG TABLET.ER PO SCH ×2 (04:26→10:29)
[2022-01-01] MEDS: *HR* Heparin 5,000 UNIT/ML VIAL SQ SCH (06:13)
[2022-01-01 06:21] VITALS: BP 131/58; PULSE 63; TEMP 99.1; O2SAT 95
[2022-01-01] MEDS: Baclofen 10 MG TABLET PO SCH (10:30)
[2022-01-01] MEDS: Metoprolol XL (24 HR) Succ 25 MG TAB.ER.24H PO SCH (10:30)
[2022-01-01] MEDS: Famotidine 20 MG TABLET PO SCH (10:30)
[2022-01-01] MEDS: Cholecalciferol (D-3) 1,000 UNIT (25MCG) TABLET PO SCH (10:31)
[2022-01-01] MEDS: lisinopriL 20 MG TABLET PO SCH (10:40)
== END 2022-01-01 15:28 | disposition home health service (06) ==
LOC: 4WAOSI 13:41 → EMEROOARM 13:41 → SUATTDRO 15:49 → 4WAOSI 17:13
PROVIDERS: ADMIT General Practice; ATTEND Internal Medicine